=== PATIENT | female | born 1955 | race Caucasian/White ===

== ENCOUNTER 2016-11-02 13:19 | Emergency (ER) | payer SELFPAY ==
[2016-11-02] MEDS ORDERED: TDAP ADULT 0.5 ML INJ (BOOSTRIX) IM ONE (14:38)
--- NOTE | 2016-11-02 14:58 | EDPHY ---
H & P Time Seen by Provider: 11/02/16 13:50 HPI/ROS: HPI Facial laceration. Hit door. 61-year-old female by private vehicle with her friend. This patient reports that she opened the door and accidentally hit herself under the left eye. She sustained a laceration beneath the left eye. She denies any other injury or complaint. She was seen at the [facility] briefly. She was told to come to the emergency department for further management. No loss of consciousness. She has had no confusion. No nausea or vomiting. No headache. She denies any changes in vision. No neck pain. No other complaints. ROS: Constitutional: No fever, no chills. No weakness. Eyes: No discharge. No changes in vision. Musculoskeletal: No back pain. No neck pain. As above Skin: Facial laceration as above Neurological: No headache. No focal weakness or altered sensation. Past medical history: Back surgery Social history: Nonsmoker. Here with her friend. Physical Exam: General Appearance: Alert, no distress. This patient is responding to questions appropriately and in full sentences. This patient appears well- hydrated and well-nourished. Head: Normocephalic atraumatic. Face: Facial bones are stable on palpation. She has a mild amount of ecchymosis just over the left upper maxilla. There is a 2.5 cm jagged laceration which has a small amount of tissue loss over this area. No infraorbital paresthesia. No diplopia on upward gaze. There is no significant bony tenderness, step-off or crepitus on palpation of this area. Eyes: Pupils equal and round and reactive to light, no pallor or injection. No lid erythema or edema. ENT, Mouth: Mucous membranes moist. Dentition is intact. No malocclusion of the jaw. No tongue lacerations or abrasions. Pharynx is clear. The bilateral nasal canals are clear. No septal hematoma. Neurological: Motor sensory function is intact. Cranial nerves are normal. Cerebellar function intact. Skin: Warm and dry, no rashes. No lacerations, abrasions or contusions. Extremities are symmetrical, full range of motion. All joints in the bilateral upper and bilateral lower extremities range without pain or impingement. No tenderness on palpation of the long bones in the bilateral upper and bilateral lower extremities. Psychiatric: No agitation. No depression. Database: EKG: Imaging: Procedures: Procedure: Laceration repair. Verbal consent was obtained from the patient. The 2.5 cm laceration on the left upper cheek was anesthetized in the usual fashion. The wound was irrigated , draped and explored to its base with a gloved finger. There were no deep structures involved. No foreign body was identified. The wound was repaired with 8, 6.0 Prolene sutures placed in interrupted fashion. The wound repair was tolerated well and there were no complications. The procedure was performed by myself. Emergency department course: After suture repair, wound care was discussed with the patient. Follow-up and return to emergency department precautions reviewed. Suture removal reviewed. She feels comfortable going home. All of her questions were answered. She was discharged in good condition. Differential Diagnosis: The differential diagnosis on this patient includes but is not limited to facial contusion, facial laceration. Facial fracture, traumatic brain injury, spinal injury, other significant traumatic injury unlikely. This represents a partial list of diagnoses considered. These considerations are based on history , physical exam, past history, reassessment and diagnostic testing. Smoking Status: Former smoker Constitutional: Initial Vital Signs Temperature (C) 36.8 C 11/02/16 13:20 Heart Rate 88 11/02/16 13:20 Blood Pressure 134/98 H 11/02/16 13:20 O2 Sat (%) 95 11/02/16 13:20 O2 Delivery Mode Room Air Allergies/Adverse Reactions: morphine Allergy (Severe, Verified 02/02/13 18:45) "SCREAMING IMMANUEL" penicillin V potassium [From Pen-Vee K] Allergy (Intermediate, Verified 18:44) Rash Home Medications: Medication Instructions Recorded Aspirin/Acetaminophen/Caffeine 1 each PO .2-3 TIMES A DAY 02/02/13 [Excedrin Migraine Geltab] Herbals/Supplements -Info Only 1 each PO AD 02/02/13 Hydrocodone/Acetaminophen [Vicodin 1 each PO QID 02/02/13 5-300 mg Tablet] Multivitamins [Tab-A-Tiffanie] 1 each PO DAILY 02/02/13 Pharmacist Completed 02/02/13 02/02/13 Medical Decision Making - Data Points Medications Given: Discontinued Medications Diphtheria/Tetanus/Acell Pertussis (Boostrix) 0.5 ml IM .ONCE ONE Stop: 11/02/16 14:39 Last Admin: 11/02/16 14:44 Dose: 0.5 ml Departure - Departure Disposition: Home, Routine, Self-Care Clinical Impression: Facial contusion, Facial laceration Condition: Good Instructions: Facial Laceration (ED) Additional Instructions: Read and follow provided instructions. Sutures are to be removed in 5-7 days. This can be done here at the emergency department or your primary care physician can do this. Ibuprofen dosin mg every 6 hours with meals for the next 3 days only. Take only as needed for pain. Return to the emergency department for worsening pain, signs of infection or other serious concerns. Referrals: Shadia Gutierrez MD [Primary Care Provider] - As per Instructions
[2016-11-02 15:03] VITALS: BP 147/81; PULSE 78; RESP 16; TEMP 97.5; O2SAT 98
== END 2016-11-07 12:17 | disposition home or self-care (01) ==
PROC: 0HQ1XZZ Repair Face Skin, External Approach (ICD-10-PCS; principal; 2016-11-02)
DX: S01.412A Laceration without foreign body of left cheek and temporomandibular area, initial encounter (principal); Z23 Encounter for immunization; Z79.82 Long term (current) use of aspirin; Z87.891 Personal history of nicotine dependence; W22.8XXA Striking against or struck by other objects, initial encounter; Y93.89 Activity, other specified

== ENCOUNTER 2016-11-19 11:06 | Inpatient (IN) | payer BC ==
[2016-11-19] MEDS ORDERED: NS 1,000 ML IV ONE ×2 (11:15→11:16)
[2016-11-19 11:37] LABS: % IMMATURE GRANULYOCYTES 0.5 % (0.0-1.1); ABSOLUTE IMMATURE GRANULOCYTES 0.05 10^3/uL (0.00-0.10); ADD DIFF? NO; ADD MORPH? YES; ADD SCAN? NO; ATYPICAL LYMPHOCYTE FLAG 10 (0-99); FRAGMENT RBC FLAG 0 (0-99); LEFT SHIFT FLG 0 (0-99); LIPEMIA HEMOLYSIS FLAG 90 (0-99); MEAN CELL HEMOGLOBIN 33.3 pg (27.9-34.1); MEAN CELL HEMOGLOBIN CONCENTR. 34.4 g/dL (32.4-36.7); MEAN CELL VOLUME 96.8 fL (81.5-99.8); MEAN PLATELET VOLUME 10.1 fL (8.7-11.7); PLATELET CLUMPS FLAG 10 (0-99); PLATELET COUNT 270 10^3/uL (150-400); RED BLOOD CELL COUNT 1.86 10^6/uL (4.18-5.33); RED CELL DISTRIBUTION WIDTH 13.9 % (11.5-15.2)
[2016-11-19 11:38] LABS: HEMOGLOBIN 6.2 g/dL (12.6-16.3)
--- NOTE | 2016-11-19 11:40 | EDPHY ---
HPI/HX/ROS/PE/MDM Narrative: CHIEF COMPLAINT: Rectal bleeding, weakness HPI: The patient is a 61 y/o female, with a history of peptic ulcers, arriving with her friend complaining of rectal bleeding onset 2 days ago and weakness onset this morning. She had a normal endoscopy and colonoscopy in July 2016 through [facility]. She reports the bleeding began suddenly early Sunday morning and woke her from sleep. It became "profuse" throughout the day and has been nearly continuous since Sunday. She called [facility] and eventually spoke with Dr. Escamilla who thought her symptoms were likely due to internal hemorrhoids. He referred her to urgent care as they were unable to see her in the office, but urgent care referred her directly to the ED. Today, she describes bowel movements of "solid blood" that ranges from burgundy to black in color and sometimes has clots in it. She had one episode of vomiting with normal-colored emesis. She currently feels too weak to stand up. She notes she has been using Tylenol and Excedrin frequently for her chronic back pain. REVIEW OF SYSTEMS: Aside from elements discussed in the HPI, a comprehensive 10-point review of systems was reviewed and is negative. 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 No alcohol use. . Friend at bedside. PHYSICAL EXAM: General:Patient is alert, in no acute distress. ENT: Sclera icterus, eyes are otherwise normal to inspection. ENT inspection normal. Neck: Normal inspection. Full range of motion. Respiratory:No respiratory distress. Breath sounds normal bilaterally. Cardiovascular: Regular rate and rhythm. Strong peripheral pulses. Normal cap refill. Abdomen:The abdomen is nontender to palpation. There are no peritoneal signs. There are normal bowel sounds. Back: Normal to inspection. No tenderness to palpation. Skin: Pale. No rash. Warm and dry. Extremities: Normal appearance. Full range of motion. Neuro: Oriented x3. Normal motor function. Normal sensory function. ED Course: This is a 61 y/o female, with a history of peptic ulcers, who presents with acute onset "burgundy" rectal bleeding and progressive weakness over the last 3 days. She notes a colonoscopy and endoscopy in July 2016 were normal. She is pale on exam, but mentating appropriately despite an initial BP of 67/56 and tachycardia. Her presentation is consistent with a GI bleed and anemia. Plan for IV, labs, and possible transfusion pending lab results. I also plan to consult GI. Patient's Hct is decreased at 19 and she will require a blood transfusion. 1 unit PRBCs ordered. 1147: Consulted with Dr. Varma, GI. He agrees with my plan for transfusion and Protonix drip and will assess her during admission. 1154: Spoke with hospitalist service. Dr. Carpenter accepts admission to the ICU. Critical care time spent by me, Dr. Madrid, exclusively with this patient was 60 minutes, exclusive of PA time and exclusive of procedures. The organ system at risk was GI and cardiovascular and I gave IVF and blood transfusion to prevent worsening of the patients condition. - Data Points Laboratory Results: Laboratory Results 11/19/16 11:21 11/19/16 11:21 11/19/16 11/19/16 11/19/16 11:21 11:21 11:21 WBC RBC Hgb POC Hgb Hct POC Hct MCV MCH MCHC RDW Plt Count MPV Neut % (Auto) Lymph % (Auto) Sutter % (Auto) Eos % (Auto) Baso % (Auto) Nucleat RBC Rel Count Absolute Neuts (auto) Absolute Lymphs (auto) Absolute Monos (auto) Absolute Eos (auto) Absolute Basos (auto) Absolute Nucleated RBC Immature Gran % Immature Gran # Platelet Estimate Polychromasia Smear Review By PT INR APTT POC Sodium Sodium 136 mEq/L mEq/L (134-144) POC Potassium Potassium 3.8 mEq/L mEq/L (3.5-5.2) POC Chloride Chloride 105 mEq/L mEq/L (97-110) Carbon Dioxide 20 mEq/l L mEq/l (22-31) Anion Gap 11 mEq/L mEq/L (8-16) POC BUN BUN 35 mg/dL H mg/dL (7-23) Creatinine 0.7 mg/dL mg/dL (0.6-1.0) POC Creatinine Estimated GFR > 60 Glucose 158 mg/dL H mg/dL (70-100) POC Glucose Calcium 8.8 mg/dL mg/dL (8.5-10.4) Total Bilirubin 0.4 mg/dL mg/dL (0.1-1.4) Conjugated Bilirubin 0.3 mg/dL mg/dL (0.0-0.5) Unconjugated Bilirubin 0.1 mg/dL mg/dL (0.0-1.1) AST 16 IU/L IU/L (14-46) ALT 24 IU/L IU/L (9-52) Alkaline Phosphatase 34 IU/L L IU/L (38-126) Total Protein 5.5 g/dL L g/dL (6.3-8.2) Albumin 3.3 g/dL L g/dL (3.5-5.0) H. pylori IgG Antibody Pending Patient ABO/Rh A NEGATIVE Antibody Screen NEGATIVE Crossmatch IS Only See Detail 11/19/16 11/19/16 11/19/16 11:21 11:21 11:20 WBC 9.18 10^3/uL 10^3/uL (3.80-9.50) RBC 1.86 10^6/uL L 10^6/uL (4.18-5.33) Hgb 6.2 g/dL L g/dL (12.6-16.3) POC Hgb 6.5 gm/dL L gm/dL (12.3-15.9) Hct 18.0 % L % (38.0-47.0) POC Hct 19 % L % (35.5-47.5) MCV 96.8 fL fL (81.5-99.8) MCH 33.3 pg pg (27.9-34.1) MCHC 34.4 g/dL g/dL (32.4-36.7) RDW 13.9 % % (11.5-15.2) Plt Count 270 10^3/uL 10^3/uL (150-400) MPV 10.1 fL fL (8.7-11.7) Neut % (Auto) 75.9 % H % (39.3-74.2) Lymph % (Auto) 18.4 % % (15.0-45.0) Sutter % (Auto) 4.4 % L % (4.5-13.0) Eos % (Auto) 0.5 % L % (0.6-7.6) Baso % (Auto) 0.3 % % (0.3-1.7) Nucleat RBC Rel Count 0.0 % % (0.0-0.2) Absolute Neuts (auto) 6.96 10^3/uL H 10^3/uL (1.70-6.50) Absolute Lymphs (auto) 1.69 10^3/uL 10^3/uL (1.00-3.00) Absolute Monos (auto) 0.40 10^3/uL 10^3/uL (0.30-0.80) Absolute Eos (auto) 0.05 10^3/uL 10^3/uL (0.03-0.40) Absolute Basos (auto) 0.03 10^3/uL 10^3/uL (0.02-0.10) Absolute Nucleated RBC 0.00 10^3/uL 10^3/uL (0-0.01) Immature Gran % 0.5 % % (0.0-1.1) Immature Gran # 0.05 10^3/uL 10^3/uL (0.00-0.10) Platelet Estimate ADEQUATE (ADEQ) Polychromasia 1+ H Smear Review By Pending PT 13.7 SEC SEC (12.0-15.0) INR 1.06 (0.83-1.16) APTT 21.2 SEC L SEC (23.0-38.0) POC Sodium 138 mEq/L mEq/L (134-144) Sodium POC Potassium 3.5 mEq/L mEq/L (3.3-5.0) Potassium POC Chloride 102 mEq/L mEq/L (96-108) Chloride Carbon Dioxide Anion Gap POC BUN 32 mg/dL H mg/dL (7-23) BUN Creatinine POC Creatinine 0.6 mg/dL mg/dL (0.6-1.2) Estimated GFR Glucose POC Glucose 164 mg/dL H mg/dL (70-100) Calcium Total Bilirubin Conjugated Bilirubin Unconjugated Bilirubin AST ALT Alkaline Phosphatase Total Protein Albumin H. pylori IgG Antibody Patient ABO/Rh Antibody Screen Crossmatch IS Only Medications Given: Discontinued Medications Sodium Chloride (Ns) 1,000 mls @ 0 mls/hr IV ONCE ONE PRN Reason: Wide Open Stop: 11/19/16 11:16 Last Admin: 11/19/16 11:32 Dose: 1,000 mls Sodium Chloride (Ns) 1,000 mls @ 0 mls/hr IV ONCE ONE PRN Reason: Wide Open Stop: 11/19/16 11:17 Last Admin: 11/19/16 11:43 Dose: 1,000 mls Point of Care Test Results: 11/19/16 11:20 POC Sodium 138 POC Potassium 3.5 POC Chloride 102 POC BUN 32 H POC Creatinine 0.6 POC Glucose 164 H General Time Seen by Provider: 11/19/16 11:13 Initial Vital Signs: Initial Vital Signs Temperature (C) 36.2 C 11/19/16 11:10 Heart Rate 130 H 11/19/16 11:10 Respiratory Rate 22 H 11/19/16 11:10 Blood Pressure 67/53 L 11/19/16 11:10 O2 Sat (%) 94 11/19/16 11:10 O2 Delivery Mode Room Air Allergies/Adverse Reactions: morphine Allergy (Severe, Verified 11/19/16 11:10) "SCREAMING IMMANUEL" penicillin V potassium [From Pen-Vee K] Allergy (Intermediate, Verified 11:10) Rash Home Medications: Medication Instructions Recorded Multivitamins [Tab-A-Tiffanie] 1 each PO DAILY 02/02/13 Aspirin [Aspirin 325 mg (*)] 325 mg PO DAILY 11/19/16 FLUoxetine [Prozac 20 MG (*)] 40 mg PO DAILY 11/19/16 LORazepam [Ativan (*)] 1 mg PO HS PRN 11/19/16 Departure - Departure Disposition: [facility] Inpatient Acute Clinical Impression: Hemorrhagic shock GI bleed Qualifiers: GI bleed type/associated pathology: unspecified gastrointestinal hemorrhage type Qualified Code(s): K92.2 - Gastrointestinal hemorrhage, unspecified Anemia Qualifiers: Anemia type: other cause Other causes of anemia: other cause, not classified Qualified Code(s): D64.89 - Other specified anemias Condition: Fair Report Scribed for: Tommy Madrid Report Scribed by: Deneen Thomas Date of Report: 11/19/16 Time of Report: 11:40 Physician Review and Approval Statement: Portions of this note were transcribed by an ED scribe. I personally performed the history, physical exam, and medical decision making; and confirm the accuracy of the information in the transcribed note.
[2016-11-19] MEDS ORDERED: PANTOPRAZOLE SODIUM 80 MG in NS 100 ML IV ONE ×2 (11:48→12:30)
[2016-11-19 11:50] LABS: INR 1.06 (0.83-1.16); PROTIME(PATIENT) 13.7 SEC (12.0-15.0)
[2016-11-19 11:51] LABS: APTT 21.2 SEC (23.0-38.0)
[2016-11-19 12:02] LABS: POLYCHROMASIA 1+
[2016-11-19 12:04] LABS: PLATELET ESTIMATE ADEQUATE (ADEQ)
[2016-11-19 12:14] LABS: ALANINE AMINOTRANSFERASE 24 IU/L (9-52); ALBUMIN 3.3 g/dL (3.5-5.0); ALKALINE PHOSPHATASE 34 IU/L (38-126); ANION GAP 11 mEq/L (8-16); ASPARTATE AMINOTRANSFERASE 16 IU/L (14-46); BILIRUBIN,TOTAL 0.4 mg/dL (0.1-1.4); BILIRUBIN-CONJUGATED 0.3 mg/dL (0.0-0.5); BILIRUBIN-UNCONJUGATED 0.1 mg/dL (0.0-1.1); CALCIUM 8.8 mg/dL (8.5-10.4); CARBON DIOXIDE 20 mEq/l (22-31); CHLORIDE 105 mEq/L (97-110); CREATININE 0.7 mg/dL (0.6-1.0); GLOMERULAR FILTRATION RATE > 60; GLUCOSE 158 mg/dL (70-100); POTASSIUM 3.8 mEq/L (3.5-5.2); SODIUM 136 mEq/L (134-144); TOTAL PROTEIN 5.5 g/dL (6.3-8.2)
[2016-11-19] MEDS ORDERED: TEMAZEPAM 15 MG CAP PO PRN (12:37)
[2016-11-19] MEDS ORDERED: ONDANSETRON 4 MG/2 ML VIAL IVP PRN (12:37)
[2016-11-19] MEDS ORDERED: ACETAMINOPHEN 325 MG TAB PO PRN (12:37)
[2016-11-19] MEDS ORDERED: ONDANSETRON DISINTEGRATING 4 MG TAB PO PRN (12:37)
[2016-11-19] MEDS ORDERED: LORazepam 1 MG TAB PO PRN (12:40)
[2016-11-19] MEDS ORDERED: NS 1,000 ML IV SCH (12:45)
--- NOTE | 2016-11-19 13:13 | GHP ---
[f rep st] HISTORY AND PHYSICAL DATE OF ADMISSION: 11/19/2016 CHIEF COMPLAINT: GI bleed. HISTORY OF PRESENT ILLNESS: This is a 61-year-old female with a history of gastric ulcers who prese nts with a GI bleed. 2 days prior to presentation, she had an acute episode of bright red blood per rectum which she describes as large and profuse. This then stopped. 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 The day before presentation she had some ongoing mild bleeding; however, she presen mari to the emergency department today after having an episode of melena. She threw up once though t his was stomach contents and was not bloody. She felt quite weak, dizzy, and had some mild chest pa in. She has been off a PPI for approximately 4 months. She said that she wanted to get off all her medi cations. She has also been taking Excedrin which contains aspirin she says at least a few a day. T his is due to chronic low back pain. She was trying to get off narcotics. She reports a colonoscopy as well as an upper endoscopy in July of 2016. At that point, she had no ulcers and had internal hemorrhoids though. She does have a history of polyps. She has a histo ry of a GI bleed in 2012 which was due to gastric ulcers. PAST MEDICAL/SURGICAL HISTORY: 1. Peptic ulcer disease. 2. History of a volvulus status post colectomy. 3. Chronic low back pain with previous chronic narcotic use. 4. x2. 5. Lumbar surgeries. MEDICATIONS: Please see medication reconciliation. ALLERGIES: Morphine and penicillin. SOCIAL HISTORY: She occasionally drinks alcohol. She does not smoke. She is accompanied by her sandra ferris and the rest of her family. FAMILY HISTORY: No ulcers. REVIEW OF SYSTEMS: 10-point review of systems is conducted and is negative except per HPI. PHYSICAL EXAMINATION: VITAL SIGNS: Initial blood pressure is 67/53, heart rate 130, respiration ra te 22, saturating 94% on room air. GENERAL: The patient is a pleasant female who appears mildly di stressed but not terribly uncomfortable. HEENT: Normocephalic, atraumatic. CARDIOVASCULAR: Borde rline tachycardic. There are no murmurs, rubs, or gallops. PULMONARY: In no respiratory distress. She is clear to auscultation bilaterally. ABDOMEN: Soft, nontender, nondistended. She has haydee l bowel sounds. SKIN: No rash. : No Jones. NEUROLOGIC: Alert and oriented x3. She is moving all extremities. PSYCHIATRIC: Normal mood and affect. LABORATORY DATA: Hemoglobin is 6.2, down from 12 and her previous check INR is 1.0, platelets are 2 70. Bicarb is 20. DATA: 1. I reviewed her chart including her old EGD. 2. I discussed this with Dr. Madrid in the emergency department. IMPRESSION AND PLAN: A 61-year-old female with a severe GI bleed. 1. GI bleed: I suspect that this is upper; however, lower is certainly a possibility. She has bee n on aspirin off PPI. Has a history of ulcers. Also has internal hemorrhoids as well as a colectom y with reanastomosis. GI has been consulted. Expect an upper endoscopy and possibly lower endoscop y based on the findings. Will place her on continuous Protonix for now. 2. Acute blood loss anemia: This is very marked. She was hemodynamically unstable on presentation with hemorrhagic shock. She is currently getting normal saline and will get a transfusion of blood . Will trend her H and H. She may need additional transfusions. 3. Chronic low back pain: She has been off narcotics recently. Will give her pain medications p.r .n. 4. Mild acidosis: This is likely lactate in the setting of hypoperfusion. I expect that this will correct with by correcting her shock. 5. Venous thromboembolism risk: She is moderate; however, pharmacologic is contraindicated. Will give her SCDs. 6. Diet will be n.p.o. for now pending endoscopy. BILLING: I spent 45 minutes of critical care time for hemorrhagic shock and life-threatening GI ble ed. She will be triaged at the ICU. /[id number]/MODL
[2016-11-19] MEDS ORDERED: LORazepam 2 MG/ML INJ ONE ×2 (13:18→16:08)
[2016-11-19] MEDS ORDERED: LORazepam 2 MG/ML INJ IVP ONE (13:20)
[2016-11-19] MEDS ORDERED: methylPREDNISolone SOD SUCC 125 MG/2 ML VIAL IVP ONE (13:23)
[2016-11-19] MEDS ORDERED: methylPREDNISolone SOD SUCC 125 MG/2 ML VIAL ONE (13:31)
[2016-11-19] MEDS: PANTOPRAZOLE SODIUM 80 MG in NS 100 ML IV SCH ×2 (15:18→21:09)
[2016-11-19 16:06] LABS: HEMATOCRIT 22.3 % (38.0-47.0); HEMOGLOBIN 7.8 g/dL (12.6-16.3)
[2016-11-19] MEDS ORDERED: MIDAZOLAM 2 MG/2 ML VIAL ONE (16:07)
[2016-11-19] MEDS ORDERED: fentaNYL 100 MCG/2 ML INJ ONE (16:08)
[2016-11-19] MEDS ORDERED: MIDAZOLAM 2 MG/2 ML VIAL IVP ONE (16:30)
[2016-11-19] MEDS ORDERED: fentaNYL 100 MCG/2 ML INJ IV ONE (16:30)
[2016-11-19] MEDS ORDERED: LORazepam 2 MG/ML INJ IV ONE (16:30)
--- NOTE | 2016-11-19 16:38 | GCON ---
[f rep st] CONSULTATION ASSESSMENT: A 61-year-old female, presenting with acute gastrointestinal bleeding. She is acutely anemic and had hypotensive/ tachycardia in the emergency room. I suspect she has an upper GI bleed based on her presentation. The differential also includes lower GI bleeding or small bowel bleeding. RECOMMENDATIONS: 1. N.p.o. 2. IV PPI drip. 3. Blood transfusion x2. 4. Admission to the ICU. 5. Plan for emergent EGD. CHIEF COMPLAINT: I was asked to see the patient in consultation by Dr. Carpenter for a chief complaint of melena and acute blood loss anemia. HISTORY OF PRESENT ILLNESS: The patient is a 61-year-old female with a history of peptic ulcer disease, who presents with bright red blood per rectum, rectal bleeding, and now melena since Sunday. She also reports weakness and dizziness. She takes Excedrin on a regular basis and recently stopped taking her proton pump inhibitor medication. She vomited once since the bleeding started. She has chronic back pain and has undergone back surgery. She denies any fevers. REVIEW OF SYMPTOMS: CONSTITUTIONAL: Negative. HEENT: Negative. RESPIRATORY : Negative. CARDIOVASCULAR: Negative. GASTROINTESTINAL: See history of present illness for details. RECTAL: Bleeding, melena, and nausea are all positive. GENITOURINARY: Negative. REPRODUCTIVE/ENDOCRINE: Negative. MUSCULOSKELETAL: Negative other than chronic back pain, which is controlled. HEMATOLOGIC/LYMPHATIC: Negative. IMMUNOLOGIC/ALLERGIC/RHEUMATOLOGIC: Negative. SKIN: Negative. NEUROLOGIC: Negative. MENTAL HEALTH: Negative. PAST MEDICAL HISTORY: Significant for: 1. History of a rectal polyp, status post surgical resection. 2. History of cecal volvulus, status post surgery. 3. Chronic back pain. SURGICAL HISTORY: 1. x2. 2. Lumbar back surgery x2. 3. Colectomy for cecal volvulus. 4. Surgical removal of large colon polyp. FAMILY HISTORY: No family history noted related to the chief complaint. SOCIAL HISTORY: She does not smoke. She previously used alcohol on a regular basis fairly heavily. She quit, but then restarted, and has since quit again. ALLERGIES: She has a listed allergy to penicillin and morphine derivatives. OUTPATIENT MEDICATIONS: 1. Excedrin. 2. Tylenol. 3. Temazepam as needed for insomnia. 4. Prozac 40 mg orally daily. INPATIENT MEDICATIONS: 1. Tylenol. 2. Prozac 40 mg orally daily. 3. Lorazepam 1 mg at night as needed for insomnia. 4. Zofran 4 mg IV orally every 4 hours as needed for nausea and vomiting. 5. Pantoprazole IV drip. 6. Temazepam 15 mg orally at night as needed for insomnia. PHYSICAL EXAMINATION: VITAL SIGNS: Blood pressure currently 118/66, heart rate 99, respirations 16, she is saturating 100% on 2 L nasal cannula. Initially upon presentation to the emergency room, her blood pressure was 67/53 with a heart rate of 130. She is afebrile with a temperature of 36.2. GENERAL : She is awake, alert, interactive, in no acute distress. HEENT: Pupils are equal, round, and reactive to light. Oral mucosa is moist. CHEST: Breath sounds are clear to auscultation bilaterally without rales, rhonchi, or wheezing. CARDIOVASCULAR: Regular heart rate and rhythm. No murmurs, rubs, or gallops. Normal S1, S2. ABDOMEN: Soft, nontender, nondistended. MUSCULOSKELETAL: Full range of motion. SKIN: [place], warm, and well perfused. No rashes. NEUROLOGICAL: Grossly nonfocal. Cranial nerves 2-12 are intact. She is coordinating gait. LYMPH NODES: There are no palpable lymph nodes. PSYCHIATRIC: She is oriented x3. No mood disorder. Normal affect. LABORATORY DATA: White blood cell count is 9.18, hemoglobin 6.2, hematocrit of 18, MCV 96.8, platelet count 270. INR is 1.06. Sodium 136, potassium 3.8, chloride 105, carbon dioxide 12, anion gap 11, BUN 35, creatinine 0.7, glucose 158, calcium 8.8, total bilirubin 0.4, AST 16, ALT 24, alkaline phosphatase is 34, total protein 5.5, albumin is 3.3. /[id number]/MODL MTDD
[2016-11-19 17:08] VITALS: TEMP 99
[2016-11-19] MEDS ORDERED: GOLYTELY 4000 ML BTL PO ONE (17:11)
--- NOTE | 2016-11-19 17:15 | POSTOPPROG ---
Post Op Note Date of Operation: 11/19/16 Surgeon: Valeriano Varma Pre-op Diagnosis: Suspect upper GI bleeding Post-op Diagnosis: Normal EGD Indication: Acute blood loss anemia Procedure: EGD Findings: Normal EGD. No source for bleeding found. Inf/Abcess present in the surg proc area at time of surgery?: No EBL: Minimal Complications: none Specimen(s): none
--- NOTE | 2016-11-19 18:34 | GPN ---
[f rep st] PROCEDURE NOTE PROCEDURE: Upper endoscopy. PREPROCEDURE DIAGNOSIS: Suspected acute upper GI bleed. POSTPROCEDURE DIAGNOSIS: Normal upper endoscopy. MEDICATIONS: 1. Diphenhydramine 25 mg IV. 2. Fentanyl 200 mcg IV. 3. Midazolam 9 mg IV moderate sedation. Moderate sedation was administered by the nurse and over seen by myself, Dr. Varma. The patient was monitored with blood pressure, heart rate, oxygen saturations, and telemetry. TOTAL PROCEDURE TIME: 35 minutes. INDICATIONS: The patient is a 61-year-old female who presents with suspected acute upper GI hemorrhage with melena and bright red blood per rectum. She is hypotensive and tachycardic in the emergency room. She has since stabilized and has been given 2 units of blood. She is undergoing emergent upper endoscopy for further evaluation. The risks and benefits of the procedure were discussed with the patient and consent obtained. The risks include, but not limited to, bleeding, perforation, risks of sedation. The patient is ASA class 2. DESCRIPTION OF PROCEDURE: The upper endoscope inserted into the esophagus, into stomach and second portion of the duodenum. The esophagus appears normal. The GE junction is located at 40 cm from incisors. There is no evidence of esophagitis, varices or esophageal varices. She has no gastritis. There is no blood in the entire upper GI tract. The duodenum and second portion are normal. There are no duodenal ulcers noted. IMPRESSION: Normal upper endoscopy without source of bleeding being found. RECOMMENDATIONS: Plan for GoLYTELY prep overnight and a colonoscopy in the morning. Given her high sedation requirements, we will schedule this with propofol/ MAC. Thank you for allowing me to participate in the care of patient. Please do not hesitate to call with questions. /[id number]/MODL MTDD
[2016-11-19 22:29] LABS: HEMATOCRIT 27.6 % (38.0-47.0); HEMOGLOBIN 9.8 g/dL (12.6-16.3)
[2016-11-20] MEDS ORDERED: diphenhydrAMINE 25 MG CAP PO ONE (04:39)
[2016-11-20 05:08] LABS: % IMMATURE GRANULYOCYTES 0.5 % (0.0-1.1); ABSOLUTE IMMATURE GRANULOCYTES 0.04 10^3/uL (0.00-0.10); ADD DIFF? NO; ADD MORPH? NO; ADD SCAN? NO; ATYPICAL LYMPHOCYTE FLAG 0 (0-99); FRAGMENT RBC FLAG 0 (0-99); HEMATOCRIT 25.9 % (38.0-47.0); HEMOGLOBIN 9.1 g/dL (12.6-16.3); LEFT SHIFT FLG 10 (0-99); LIPEMIA HEMOLYSIS FLAG 90 (0-99); MEAN CELL HEMOGLOBIN 31.8 pg (27.9-34.1); MEAN CELL HEMOGLOBIN CONCENTR. 35.1 g/dL (32.4-36.7); MEAN CELL VOLUME 90.6 fL (81.5-99.8); MEAN PLATELET VOLUME 10.6 fL (8.7-11.7); PLATELET CLUMPS FLAG 20 (0-99); PLATELET COUNT 152 10^3/uL (150-400); RED BLOOD CELL COUNT 2.86 10^6/uL (4.18-5.33); RED CELL DISTRIBUTION WIDTH 16.2 % (11.5-15.2)
[2016-11-20 05:39] LABS: ANION GAP 5 mEq/L (8-16); CALCIUM 7.3 mg/dL (8.5-10.4); CARBON DIOXIDE 18 mEq/l (22-31); CHLORIDE 114 mEq/L (97-110); CREATININE 0.6 mg/dL (0.6-1.0); GLOMERULAR FILTRATION RATE > 60; GLUCOSE 96 mg/dL (70-100); POTASSIUM 3.6 mEq/L (3.5-5.2); SODIUM 137 mEq/L (134-144)
[2016-11-20] MEDS ORDERED: FLUoxetine 20 MG CAP PO SCH (09:00)
[2016-11-20 09:49] LABS: HEMATOCRIT 26.4 % (38.0-47.0); HEMOGLOBIN 9.2 g/dL (12.6-16.3)
[2016-11-20 09:56] VITALS: BP 116/68; PULSE 70; RESP 14; O2SAT 93
[2016-11-20] MEDS: PANTOPRAZOLE SODIUM 80 MG in NS 100 ML IV SCH (10:11)
--- NOTE | 2016-11-20 13:20 | GDS ---
[f rep st] DISCHARGE SUMMARY DATE OF AMA DEPARTURE: 11/20/2016. DIAGNOSES: 1. Hemorrhagic shock. 2. Acute gastrointestinal bleed of unknown source. 3. Acute blood loss anemia, status post transfusion of 3 units of packed red blood cells. 4. Chronic low back pain. HOSPITAL COURSE: This is a 61-year-old female who has a history of gastric ulcers, who presented wi th an acute GI bleed and hemorrhagic shock. Blood pressure, on presentation, was 67/53, with a hear t rate of 130. Hemoglobin on presentation was 6.2, down from 12.2, last May when it was checked here. She underwent upper endoscopy, which was negative for ulcers or any source of bleeding. Her duodenal was visualized. Plan was to give her a prep and perform colonoscopy the following day. S he did not tolerate the prep. She was requesting a different type of prep, which I offered to attem pt to find. She became quite agitated the morning that she left AMA, was quite frustrated with how the prep had been attempted the evening before. As above, I told her I would attempt to find a diff erent prep that would be more suitable to her, however, she declined. She wished to leave, however, I told her that the risks of leaving would include life-threatening hemorrhage and . She elec mari to leave AMA regardless. Her was present for this conversation. DISPOSITION: She left AMA in potentially critical condition. I discussed this with Dr. Varma, wh o agreed with me. BILLING: I spent more than 30 minutes on the day of discharge coordinating care. /[id number]/MODL
== END 2016-11-20 11:18 | disposition left against medical advice (07) | DRG 377 ==
LOC: F2N 14:14
PROVIDERS: ADMIT Student in an Organized Health Care Education/Training Program; ATTEND Student in an Organized Health Care Education/Training Program
PROC: 0DJ08ZZ Inspection of Upper Intestinal Tract, Via Natural or Artificial Opening Endoscopic (ICD-10-PCS; 2016-11-19)
PROC: 30233N1 Transfusion of Nonautologous Red Blood Cells into Peripheral Vein, Percutaneous Approach (ICD-10-PCS; principal; 2016-11-19 16:00)
DX: K92.2 Gastrointestinal hemorrhage, unspecified (principal); R57.8 Other shock; D62 Acute posthemorrhagic anemia; M54.5 Low back pain; K64.8 Other hemorrhoids; Z79.899 Other long term (current) drug therapy; Z87.11 Personal history of peptic ulcer disease; Z86.010 Personal history of colon polyps; Z88.0 Allergy status to penicillin; Z90.49 Acquired absence of other specified parts of digestive tract
CPT/HCPCS: 82947-QW; J1200; J2060; J2250; J3010; P9016

== ENCOUNTER → 2017-01-23 | Outpatient (CLI) | payer BC | LOC: BMCIMAGING 07:58 | PROVIDERS: ATTEND Internal Medicine | DX: N63 Unspecified lump in breast (principal) | CPT/HCPCS: G0202 ==

== ENCOUNTER → 2017-02-04 | Outpatient (CLI) | payer BC ==
[~2017-02-04] MED LIST: GADOBUTROL 10 ML VIAL IVP ONE
== END ==
LOC: FIMAGING 13:49
PROVIDERS: ATTEND Internal Medicine
DX: D17.22 Benign lipomatous neoplasm of skin and subcutaneous tissue of left arm (principal)
CPT/HCPCS: A9585

== ENCOUNTER → 2017-02-19 | Outpatient (CLI) | payer BC | LOC: FIMAGING 09:55 | PROVIDERS: ATTEND Physician Assistant | DX: M51.36 Other intervertebral disc degeneration, lumbar region (principal); M47.896 Other spondylosis, lumbar region; M41.86 Other forms of scoliosis, lumbar region | CPT/HCPCS: A9585 ==

== ENCOUNTER → 2017-04-29 | Outpatient (CLI) | payer BC | LOC: FIMAGING 07:58 | PROVIDERS: ATTEND Neurological Surgery | DX: M51.24 Other intervertebral disc displacement, thoracic region (principal); M50.321 Other cervical disc degeneration at C4-C5 level; M48.04 Spinal stenosis, thoracic region; M48.02 Spinal stenosis, cervical region; M46.92 Unspecified inflammatory spondylopathy, cervical region ==

== ENCOUNTER → 2017-04-29 | Outpatient (CLI) | payer BC | LOC: FIMAGING 08:04 | PROVIDERS: ATTEND Neurological Surgery | DX: M41.86 Other forms of scoliosis, lumbar region (principal); M51.36 Other intervertebral disc degeneration, lumbar region; M51.37 Other intervertebral disc degeneration, lumbosacral region ==

== ENCOUNTER 2017-06-20 07:30 | Inpatient (IN) | payer BC ==
[2017-08-01] MEDS ORDERED: GABAPENTIN 300 MG CAP PO ONE (06:16)
[2017-08-01] MEDS ORDERED: ACETAMINOPHEN 500 MG TAB PO ONE (06:16)
[2017-08-01] MEDS ORDERED: ceFAZolin 2 GM/SWFI 2 GM/20 ML SYR IVP ONE (06:16)
--- NOTE | 2017-08-01 06:18 | PDANEPAE ---
ANE History of Present Illness 62 yo female with LBP and L leg paresthesia. ANE Past Medical History - Cardiovascular History Hx Hypertension: No Hx Arrhythmias: No Hx Chest Pain: No Hx Coronary Artery / Peripheral Vascular Disease: No Hx CHF / Valvular Disease: No Hx Palpitations: No - Pulmonary History Hx COPD: No Hx Asthma/Reactive Airway Disease: No Hx Recent Upper Respiratory Infection: No Hx Oxygen in Use at Home: No Hx Sleep Apnea: No Sleep Apnea Screening Result - Last Documented: Negative - Neurologic History Hx Cerebrovascular Accident: No Hx Seizures: No Hx Dementia: No - Endocrine History Hx Diabetes: No - Renal History Hx Renal Disorders: No - Liver History Hx Hepatic Disorders: No - Neurological & Psychiatric Hx Hx Neurological and Psychiatric Disorders: Yes Neurological / Psychiatric History Comment: Degenerative scoliosis, radiculopathy. L leg numbness. on Prozac for 20 yrs-depression - Cancer History Hx Cancer: No - Congenital Disorder History Hx Congenital Disorders: No - GI History Hx Gastrointestinal Disorders: Yes Gastrointestinal History Comment: GI bleed -bled 4 units of blood. Source unknown per Halley Escamilla and Avani. - Other Health History Other Health History: none - Chronic Pain History Chronic Pain: Yes - Surgical History Prior Surgeries: lumbar kim. excision of cysts in lumbar spine. colon resection. cyst removal arm ANE Review of Systems Review of Systems: - Exercise capacity METS (RN): 4 METS - Systems Constitutional: Reports: no symptoms Respiratory: Reports: cough (resolving, started 4 weeks ago) Gastrointestinal: Reports: no symptoms Muscolosketal: Reports: back pain, other (L leg pain, occ R leg pain) ANE Patient History - Allergies Allergies/Adverse Reactions: morphine Allergy (Severe, Verified 08/01/17 06:49) "SCREAMING IMMANUEL" penicillin V potassium [From Pen-Vee K] Allergy (Intermediate, Verified 06:49) Rash hydromorphone [From Dilaudid] Allergy (Verified 08/01/17 06:49) Itching - Home Medications Home Medications: FLUoxetine [Prozac 20 MG (*)] 60 mg PO DAILY 11/19/16 [Last Taken 07/31/17 21:00 ] LORazepam [Ativan (*)] 1 - 2 mg PO HS PRN 11/19/16 [Last Taken 07/31/17 21:00] Naproxen Sodium [Aleve 220 MG (*)] 220 mg PO BID PRN 05/16/17 [Last Taken 09:00] - NPO status NPO Status: no food or drink >8 hours - Anes Hx Anes Hx: no prior problems - Smoking Hx Smoking Status: Former smoker (quit x 32 yrs) Marijuana use: No - Alcohol Use Alcohol Use: Sober - Family Anes Hx Family Anes Hx: neg - N/A ANE Labs/Vital Signs - Vital Signs Vital Signs: reviewed preoperatively; see RN documention for details Height: 171.45 cm Weight: 49.442 kg ANE Physical Exam - Airway Neck exam: FROM Mallampati Score: Class 2 Mouth exam: normal dental/mouth exam - Pulmonary Pulmonary: clear to auscultation - Cardiovascular Cardiovascular: regular rate and rhythym - ASA Status ASA Status: II ANE Anesthesia Plan Anesthesia Plan: general endotracheal anesthesia Lines/Monitors: additional IV
--- NOTE | 2017-08-01 06:29 | PDHPUP ---
History & Physical Update H&P update statement: This history and physical update is based on an assessment of the patient which was completed after admission or registration (within 24 hours), but prior to the surgery/procedure. H&P update: H&P reviewed & patient examined, no change in patient's condition since H&P completed
[2017-08-01] MEDS ORDERED: DEXMEDETOMIDINE IN 0.9 % NACL 50 ML IV SCH (06:30)
[2017-08-01] MEDS ORDERED: DEXMEDETOMIDINE HCL 400 MCG in NS 100 ML IV SCH ×2 (06:30→13:30)
[2017-08-01] MEDS ORDERED: LR 1,000 ML IV ONE (06:43)
[2017-08-01] MEDS ORDERED: CHLORHEXIDINE GLUC HIBICLENS 118 ML BTL TP ONE (06:50)
[2017-08-01] MEDS ORDERED: BUPIVACAINE 0.25% 30 ML SDV ONE (06:50)
[2017-08-01] MEDS ORDERED: BACITRACIN 50,000 UNITS/10 ML SYR IRR ONE ×2 (06:51→11:00)
[2017-08-01] MEDS ORDERED: fentaNYL 250 MCG/5 ML INJ ONE (07:12)
[2017-08-01] MEDS ORDERED: LIDOCAINE 2% 5 ML SDV ONE (07:12)
[2017-08-01] MEDS ORDERED: ROCURONIUM 50 MG/5 ML VIAL ONE (07:12)
[2017-08-01] MEDS ORDERED: DEXAMETHASONE 4 MG/ML VIAL ONE (07:12)
[2017-08-01] MEDS ORDERED: PROPOFOL/EMULSION 500 MG/50 ML BOTTLE IV ONE (07:12)
[2017-08-01] MEDS ORDERED: THROMBIN (BOVINE) 5,000 UNIT VIAL TP ONE ×2 (07:23→11:01)
[2017-08-01] MEDS ORDERED: DEXMEDETOMIDINE/NS 4MCG/ML 50 ML BTL IV ONE ×2 (07:29→09:08)
[2017-08-01] MEDS ORDERED: diphenhydrAMINE 25 MG CAP PO PRN (07:41)
[2017-08-01] MEDS ORDERED: morphINE PCA 30 MG/30 ML PCA IV PRN (07:41)
[2017-08-01] MEDS ORDERED: POLYETHYLENE GLYCOL 3350 17 GM PKT PO PRN (07:41)
[2017-08-01] MEDS ORDERED: BISACODYL 10 MG SUPP PR PRN (07:41)
[2017-08-01] MEDS ORDERED: NALOXONE HCL 0.4 MG/ML INJ IVP PRN ×2 (07:41→12:36)
[2017-08-01] MEDS ORDERED: ONDANSETRON DISINTEGRATING 4 MG TAB PO PRN (07:41)
[2017-08-01] MEDS ORDERED: ONDANSETRON 4 MG/2 ML VIAL IVP PRN (07:41)
[2017-08-01] MEDS ORDERED: LACTULOSE 20 GM/30 ML UDCUP PO PRN (07:41)
[2017-08-01] MEDS ORDERED: MAGNESIUM HYDROXIDE 30 ML UDCUP PO PRN (07:41)
[2017-08-01] MEDS ORDERED: NS W/ 20 KCl/L 1,000 ML IV SCH (07:45)
[2017-08-01] MEDS ORDERED: REMIFENTANIL HCL 1 MG VIAL ONE ×2 (07:52→09:08)
[2017-08-01] MEDS ORDERED: ONDANSETRON 4 MG/2 ML VIAL ONE (11:25)
[2017-08-01] MEDS ORDERED: PHENYLEPHRINE HCL 100 MCG/ML SYR ONE (11:34)
[2017-08-01] MEDS ORDERED: fentaNYL 100 MCG/2 ML INJ ONE ×2 (12:12→14:09)
[2017-08-01] MEDS ORDERED: DIAZEPAM 10 MG/2 ML SYR IVP PRN (12:36)
[2017-08-01] MEDS ORDERED: LR 500 ML IV PRN (12:36)
[2017-08-01] MEDS ORDERED: OXYCODONE/APAP 5/325 TAB PO PRN (12:36)
[2017-08-01] MEDS ORDERED: PROMETHAZINE HCL 25 MG/ML INJ IVP PRN (12:36)
[2017-08-01] MEDS ORDERED: fentaNYL 100 MCG/2 ML INJ IVP PRN (12:36)
[2017-08-01] MEDS ORDERED: ALBUTEROL 3 ML DEYVIAL IH PRN (12:36)
[2017-08-01] MEDS ORDERED: ACETAMINOPHEN 500 MG TAB PO PRN (12:36)
--- NOTE | 2017-08-01 13:26 | SOAPPROG ---
SOAP Progress Note Assessment/Plan: Post Op Visit: S: Awake and alert. NAD. Pt with expected lower back pain O: AFVSS/PERRLA/EOMI no droop CN 2-12 grossly intact +lt touch 5/5 BUE/BLE = CDI NYLA in place A/P: 62 yo female that is s/p TLIF L3-S1 -orders in -no bending or twisting -seen by Dr Esqueda as well -admit to SDU on Precedex 08/01/17 13:20 Objective: Vital Signs Temp Pulse Resp BP Pulse Ox 37.5 C 59 L 13 73/49 L 100 08/01/17 13:14 08/01/17 06:23 08/01/17 13:15 08/01/17 13:15 08/01/17 13:15 ICD10 Worksheet Patient Problems: Problems Problem Status Onset Lumbar back pain Acute Lumbar radicular pain Acute Anemia Acute GI bleed Acute Hemorrhagic shock Acute - ICD10 Problem Qualifiers (1) Lumbar back pain (2) Lumbar radicular pain
--- NOTE | 2017-08-01 13:53 | POSTANESTH ---
Post Anesthetic Evaluation Cardiovascular Status: Tx Hyper/Hypo-tension (Giving IVF bolus for borderline low BP.) Respiratory Status: Normal, Stable Level of Consciousness/Mental Status: Can Participate in Eval, Mildly Sleepy, Arousable Pain Control: Adequate, Prn Tx Ordered Nausea/Vomiting Control: Adequate, Prn Tx Ordered Complications Possibly Related to Anesthesia: None Noted
[2017-08-01] MEDS ORDERED: DIAZEPAM 10 MG/2 ML SYR ONE (14:24)
--- NOTE | 2017-08-01 14:31 | GOP ---
[f rep st] OPERATIVE REPORT DATE OF OPERATION: 08/01/2017 SURGEON: Shilpi Esqueda MD NEUROSURGEON: Shilpi Esqueda MD CORE JAVA ENGINEER: Stanislav Cali PA-C. PREOPERATIVE DIAGNOSIS: 1. Degenerative scoliosis L3-4, 4-5, and 5-1. 2. Bilateral lumbosacral radiculopathy, left greater than right. 3. Prior lumbar surgery L4-5, L5-S1. 4. Degenerative disk disease. POSTOPERATIVE DIAGNOSIS: 1. Degenerative scoliosis L3-4, 4-5, and 5-1. 2. Bilateral lumbosacral radiculopathy, left greater than right. 3. Prior lumbar surgery L4-5, L5-S1. 4. Degenerative disk disease. PROCEDURE PERFORMED: Posterior-lateral and intervertebral arthrodesis L3-4, L4-5, L5-S1 (23893, and 13238 x 2), posterior segmental instrumentation L3, L4, L5, S1, placement of biomechanical interverte bral device L3-4, L4-5, L5-S1 (39188 x3), same incision bone graft harvest, spinal stereotaxy, micros cope. FINDINGS: ESTIMATED BLOOD LOSS: 400 cc. INDICATIONS: Ms. Reynolds is a 62-year-old with a terrible left and some right-sided lumbosacral rad iculopathy. An MRI demonstrated severe a degenerative scoliotic curve with a leftward tilt of L4 on L5 and L5 on S1 and collapse of the disk spaces at L3-4 4-5, and 5-1. There was a rightward tilt of L3 on L4. There was severe right foraminal stenosis at 3-4, severe left foraminal stenosis L4-5 and L5-S1, and I suggested a 3-level TLIF. She also had terrible spondylosis and degenerative changes at L2-3, and some surgeons would have included this, but I felt that there was currently no symptoms em anating from L2-3. The risk of continued symptoms, pseudoarthrosis, adjacent segment disease, screw and hardware malposition, loosening of hardware, and the possible need for future spine surgery and r evision spine surgery was discussed. She knew there was a chance that she may continue to be symptom atic after surgery. There is a risk of nerve injury and spinal fluid leak. She knew surgery may alcides l to alleviate her pain, and she did want to proceed. DESCRIPTION OF PROCEDURE: The patient was taken to the operating room and placed in supine position. General anesthesia was begun. She was flipped prone onto the Tato table. Care was taken to pad all points of contact. Her back was sterilely prepped and draped in the usual fashion. A localizin g x-ray was taken. We made a midline incision from the spinous process of L2 to the spinous process of S2. The subcutaneous tissue was dissected using Bovie cautery down to the fascia, and a subperios teal dissection was made down the lamina of L3, L4, L5 and the sacrum. Self-retaining retractors toma vladimir. Localizing x-ray was taken. We denuded the bilateral L3-4, 4-5, and L5-1 facet joints. We att ached the Stealth reference frame. We performed an O-arm spin. Using frameless Stealth stereotaxy, placed pedicle screws bilaterally at L3, L4, L5, and S1. The S1 screws were bicortical. They all st imulated at acceptable levels. We did 3-dimensional reconstructive images to confirm the location of the screws, and they were all in excellent position. We then took a 90 mm jenny for the left and a 100 mm jenny on the right. We cut 100 mm jenny down to 95, p laced the jenny down on the right, distracted it slightly on the right side at L5-S1, then went to the left side and placed the jenny between L5 and S1. These two lips were touching; they were actually phy sically touching and it was very difficult to get the screws in because of their proximity, but we pu t the 90 mm jenny on the left, distracted a little bit between L5 and S1 and distracted a little bit be tween L4-5, then came back to L5-S1, distracted a little more, and then went back to L4-5, distracted some more, and we slowly got some reduction of the degenerative tilt. We could not really push anym ore. The left S1 screw was under too much strain, and we did not want to reduce it perfectly. AP an d lateral images were taken, and there had been reduction of her scoliotic curve. I was happy with t his. At L3-4, we distracted on the right but not on the left, and got reduction of that tilt on the right at L3-4. We checked x-rays, and we were happy with the position on the spine. We then release d the distraction on the right at L5-S1, and this allowed some additional straightening at that segme nt. We then removed all soft tissue and bone at L3, L4, L5 and S1 and harvested the L4, L5, and S1 s pinous processes for autologous grafting purposes. We removed all soft tissue off the bone completel y. We drilled the left L4-5, L5-S1, and a right L3-4 hemilaminectomy and removed the facet, both IAP and SAP of the joints on the right at 3-4 on the left at 4-5 and 5-1. We harvested all this bone fo r autologous grafting purposes. We then opened the neural foramen on the left-hand side. Here, ther e was a prior laminotomy defect at L5-S1. The exiting L5 nerve root was identified, and we decompres sed the entire neural foramen on the left at L5-S1. We then incised the L5-S1 disk, removed the disk and the cartilaginous endplates. On the left at L4-5, we did likewise removing the complete facet j oint complex. We identified the exiting L4 nerve root and then worked our way to the laminotomy defe ct centrally where there was scar tissue. We then opened the L4-5 disk, removed the disk and the car tilaginous endplates. We roughened the subchondral bone to create arthrodesis at that level just as we had done at L5-S1. We then went to the right at L3-4 where there was really dramatic prolapse of the L3-4 disk into the spinal canal. We removed the right IAP-SAP complex of L3-4, incised the L3-4 disk, and removed the disk and the cartilaginous endplates. We roughened the subchondral bone to cre ate arthrodesis. The exiting L3 nerve root was identified and thoroughly decompressed. We decompres sed the lateral recess, as well. We then chose [place] PEEK intervertebral devices at L3-4, L4-5, a nd then chose expandable cage at L5-S1. We then placed bone autograft into the disk space at L3-4, 4 -5, and 5-1. We chose the an cage at L5-S1. We placed a bone morphogenic protein sponge into the disk space at L3-4 4-5, and 5-1. We used a grand total of 6 mg of BMP for the entire surger y. We placed 4 mg into the disk spaces, and only 2 mg was placed posterolaterally. We took 7 x 25 m m [place] PEEK cages and inserted them at L3-4, L4-5, S1. We then took an expandable 7 x 23 mm ____ cage for L5-S1, inserted it from the left side, and under fluoroscopic guidance, it was expand ed. I was happy with the position of all the devices. We then decorticated all the remaining bone p osterolaterally bilaterally to create arthrodesis and then packed BMP and bone autograft posterolater ally bilaterally from L3 to S1. We placed a subfascial drain. We then closed the incision in multip le layers using Vicryl sutures. A running PDS was placed in the skin itself. We had revised the sca r tissue from the prior surgery and we had excised full thickness of the prior scar in the midline ab ove the L4-5 5-1 interspace. Steri-Strips were applied to the skin. A sterile dressing was applied. The patient was reversed from anesthesia, extubated, and transferred to the recovery room in stable condition. There were no complications. COMPLICATIONS: None. /[id number]/MODL
[2017-08-01] MEDS: oxyCODONE IR 5 MG TAB PO PRN (14:51)
[2017-08-01] MEDS ORDERED: oxyCODONE IR 5 MG TAB ONE (14:51)
[2017-08-01] MEDS: FAMOTIDINE 20 MG TAB PO SCH ×2 (15:41→20:46)
[2017-08-01] MEDS: SENNOSIDES/DOCUSATE SODIUM TAB PO SCH ×2 (15:43→20:45)
[2017-08-01] MEDS: GABAPENTIN 300 MG CAP PO SCH ×2 (15:50→20:45)
[2017-08-01] MEDS: ACETAMINOPHEN 500 MG TAB PO SCH ×2 (15:50→22:34)
[2017-08-01] MEDS ORDERED: DEXMEDETOMIDINE IN 0.9 % NACL 100 ML IV SCH (16:00)
[2017-08-01] MEDS: ceFAZolin 2 GM/DEXTROSE 100 ML IV SCH ×2 (16:15→22:36)
[2017-08-01] MEDS: FLUoxetine 20 MG CAP PO SCH (17:11)
[2017-08-01] MEDS ORDERED: NS 500 ML IV ONE (18:30)
[2017-08-01] MEDS: LORazepam 1 MG TAB PO PRN (20:47)
[2017-08-02 04:10] LABS: % IMMATURE GRANULYOCYTES 0.6 % (0.0-1.1); ABSOLUTE IMMATURE GRANULOCYTES 0.04 10^3/uL (0.00-0.10); ADD DIFF? NO; ADD MORPH? NO; ADD SCAN? NO; ATYPICAL LYMPHOCYTE FLAG 0 (0-99); FRAGMENT RBC FLAG 0 (0-99); HEMATOCRIT 22.1 % (38.0-47.0); HEMOGLOBIN 7.3 g/dL (12.6-16.3); LEFT SHIFT FLG 0 (0-99); LIPEMIA HEMOLYSIS FLAG 80 (0-99); MEAN CELL HEMOGLOBIN 32.4 pg (27.9-34.1); MEAN CELL VOLUME 98.2 fL (81.5-99.8); MEAN PLATELET VOLUME 10.5 fL (8.7-11.7); PLATELET CLUMPS FLAG 20 (0-99); PLATELET COUNT 178 10^3/uL (150-400); RED BLOOD CELL COUNT 2.25 10^6/uL (4.18-5.33)
[2017-08-02 04:22] LABS: ANION GAP 7 mEq/L (8-16); CALCIUM 7.7 mg/dL (8.5-10.4); CARBON DIOXIDE 23 mEq/l (22-31); CHLORIDE 111 mEq/L (97-110); CREATININE 0.6 mg/dL (0.6-1.0); GLOMERULAR FILTRATION RATE > 60; GLUCOSE 97 mg/dL (70-100); POTASSIUM 4.3 mEq/L (3.5-5.2); SODIUM 141 mEq/L (134-144)
[2017-08-02] MEDS: GABAPENTIN 300 MG CAP PO SCH ×3 (06:21→20:48)
[2017-08-02] MEDS: ACETAMINOPHEN 500 MG TAB PO SCH ×3 (06:21→20:47)
--- NOTE | 2017-08-02 07:10 | NEUSURGPN ---
Date of Surgery: 08/01/17 Post Op Day: 1 Assessment/Plan: Assessment: 62 yo female that is s/p TLIF L3-S1 POD #1 Plan: -s/p L spine fusion: pt doing well this am with improvement in LLE pain, LBP is painful but tolerable -PT/OT ordered -brace fit and working well-continue when out of bed -post op xrays pending today -H/H at 03/10-will check in am another H/H and monitor symptoms -Pt doing well with current pain medications-precedex->switch to PO -pt seen by Dr Esqueda as well -orders in -NYLA in place-may remove tomorrow -no bending or twisting -call with any questions or concerns -pt understands and agrees Subjective: Awake and alert. NAD. Pt with expected lower back pain. No siegel/neck/chest/abd or gu complaints. Objective: AFVSS/PERRLA/EOMI no droop CN 2-12 grossly intact +lt touch 5/5 BUE/BLE = CDI NYLA in place Neuro Check Frequency: per routine Urinary Catheter in Place: No Catheter Insertion Date: 08/01/17 - Physician Discussed Patient with : Dheeraj Patient Seen by : Dheeraj Neurosurgery Physical Exam - Vitals, I&O, Labs I and O 08/01/17 08/02/17 08/03/17 05:59 05:59 05:59 Intake Total 5748 Output Total 2785 Balance 2963 Weight 49.442 kg Intake: Oral (ml) 475 IV Intake (ml) 4000 IV Infused (ml) 1273 Dexmedetomidine in 0.9 % 40 NaCl 100 ml @ Per Protocol IV CONT CHUCK Rx#: [id number] NS W/ 20 KCl/L 1,000 ml @ 1233 100 mls/hr IV CONT CHUCK Rx#:[id number] Output: Urine (ml) 1950 Catheter 1950 Estimated Blood Loss (ml) 450 NYLA Drain Output (ml) 385 #1 Back Tato Mehta 385 Vital Signs Temp Pulse Resp BP Pulse Ox 36.7 C 76 16 90/42 L 100 08/01/17 20:00 08/02/17 06:00 08/02/17 06:00 08/02/17 06:00 08/02/17 06:00 Laboratory Results 08/02/17 04:00 08/02/17 04:00 ICD10 Worksheet Patient Problems: Problems Problem Status Onset Lumbar back pain Acute Lumbar radicular pain Acute Anemia Acute GI bleed Acute Hemorrhagic shock Acute - ICD10 Problem Qualifiers (1) Lumbar back pain (2) Lumbar radicular pain
[2017-08-02] MEDS: FLUoxetine 20 MG CAP PO SCH (08:01)
[2017-08-02] MEDS: METHOCARBAMOL 750 MG TAB PO PRN ×4 (08:01→20:48)
[2017-08-02] MEDS: oxyCODONE IR 5 MG TAB PO PRN ×3 (08:01→16:48)
[2017-08-02] MEDS: FAMOTIDINE 20 MG TAB PO SCH ×2 (08:03→20:47)
[2017-08-02] MEDS: SENNOSIDES/DOCUSATE SODIUM TAB PO SCH ×2 (08:03→20:47)
[2017-08-02] MEDS ORDERED: ALBUMIN 5% 250 ML BOTTLE IV ONE (09:00)
[2017-08-02] MEDS ORDERED: ALBUMIN 5% 250 ML IV ONE ×2 (09:30→10:10)
[2017-08-02] MEDS ORDERED: NS 500 ML IV ONE (09:30)
--- NOTE | 2017-08-02 16:16 | ASMTCASEMG ---
Living Arrangements What is your living Answers: With Spouse arrangement? Who do you live with? Type Of Residence What kind of residence do Answers: House you live in? Discharge Plan Comments Coordination Status Comments Notes: Patient is a 62yo female who has a hx of 2 back surgeries with increasing numbness in the left calf and weakness on the left side which spread from her hip to her toes. She was admitted for surgery to alleviate this. PT/OT have been ordered. Patient just had surgery today. Will await therapy recommendations to determine d/c needs. CM will follow. Date Signed: 08/02/2017 04:15 PM Electronically Signed By:Georgina Morel LCSW
[2017-08-02] MEDS: LORazepam 1 MG TAB PO PRN (20:47)
[2017-08-03] MEDS: oxyCODONE IR 5 MG TAB PO PRN ×5 (01:24→21:13)
[2017-08-03] MEDS: GABAPENTIN 300 MG CAP PO SCH ×3 (05:25→20:42)
[2017-08-03] MEDS: ACETAMINOPHEN 500 MG TAB PO SCH ×3 (05:26→22:14)
[2017-08-03 05:37] LABS: HEMATOCRIT 22.9 % (38.0-47.0); HEMOGLOBIN 7.4 g/dL (12.6-16.3)
[2017-08-03] MEDS: HYDROCODONE/APAP 5/325 TAB PO PRN ×2 (07:06→13:29)
--- NOTE | 2017-08-03 08:19 | NEUSURGPN ---
Assessment/Plan: Assessment: 62 yo female that is s/p TLIF L3-S1 POD #2 Plan: -s/p L spine fusion: pt doing well this am with improvement in LLE pain, LBP is painful but tolerable -PT/OT ordered -brace fit and working well-continue when out of bed -post op xrays pending today -H/H at 03/10- monitor symptoms, had apparent transfusion rxn to transfusion dc'd -Pt doing well with current pain medications-off precedex, on PO -NYLA in place- likely remove today -Transfer to floor today. -call with any questions or concerns -D/w Dr Esqueda Subjective: Pt resting in bed, states back pain is tolerable. Objective: AAOx3 NAD VSS MAEx4 Motor 5/5 BLE Incision dressed cdi +LT Urinary Catheter in Place: No Catheter Insertion Date: 08/01/17 - Physician Discussed Patient with : Dheeraj Neurosurgery Physical Exam - Vitals, I&O, Labs I and O 08/02/17 08/03/17 08/04/17 05:59 05:59 05:59 Intake Total 5748 2706 Output Total 2785 2410 Balance 2963 296 Weight 49.442 kg Intake: Oral (ml) 475 850 IV Intake (ml) 4000 500 IV Infused (ml) 1273 1196 Dexmedetomidine in 0.9 % 40 NaCl 100 ml @ Per Protocol IV CONT CHUCK Rx#: [id number] NS W/ 20 KCl/L 1,000 ml @ 1233 1196 100 mls/hr IV CONT CHUCK Rx#:[id number] Whole Blood (ml) 160 Output: Urine (ml) 1950 2100 Bedside Commode 2100 Catheter 1950 Estimated Blood Loss (ml) 450 NYLA Drain Output (ml) 385 310 #1 Back Tato Mehta 385 310 Vital Signs Temp Pulse Resp BP Pulse Ox 36.8 C 68 12 108/58 L 96 08/02/17 19:28 08/03/17 04:00 08/03/17 04:00 08/03/17 04:00 08/03/17 04:00 Laboratory Results 08/03/17 05:30 08/02/17 04:00 ICD10 Worksheet Patient Problems: Problems Problem Status Onset Lumbar back pain Acute Lumbar radicular pain Acute Anemia Acute GI bleed Acute Hemorrhagic shock Acute
[2017-08-03] MEDS: FLUoxetine 20 MG CAP PO SCH (09:02)
[2017-08-03] MEDS: SENNOSIDES/DOCUSATE SODIUM TAB PO SCH ×2 (09:02→20:44)
[2017-08-03] MEDS: FAMOTIDINE 20 MG TAB PO SCH ×2 (09:02→20:45)
[2017-08-03] MEDS: METHOCARBAMOL 750 MG TAB PO PRN (16:05)
[2017-08-03] MEDS: LORazepam 1 MG TAB PO PRN (20:44)
[2017-08-04] MEDS: HYDROCODONE/APAP 5/325 TAB PO PRN (00:25)
[2017-08-04] MEDS: METHOCARBAMOL 750 MG TAB PO PRN ×2 (00:25→11:24)
[2017-08-04 00:27] VITALS: RESP 16
[2017-08-04] MEDS: ACETAMINOPHEN 500 MG TAB PO SCH ×2 (06:01→13:25)
[2017-08-04] MEDS: GABAPENTIN 300 MG CAP PO SCH ×2 (06:02→13:25)
[2017-08-04 07:30] VITALS: BP 105/56; PULSE 71; TEMP 98.2
[2017-08-04] MEDS: oxyCODONE IR 5 MG TAB PO PRN ×2 (08:25→13:24)
[2017-08-04] MEDS: FAMOTIDINE 20 MG TAB PO SCH (08:26)
[2017-08-04] MEDS: SENNOSIDES/DOCUSATE SODIUM TAB PO SCH (08:26)
[2017-08-04] MEDS: FLUoxetine 20 MG CAP PO SCH (08:26)
[2017-08-04] MEDS ORDERED: ENOXAPARIN 40 MG/0.4 ML SYR SC SCH (09:00)
--- NOTE | 2017-08-04 09:41 | NEUSURGPN ---
Date of Surgery: 08/01/17 Post Op Day: 3 Assessment/Plan: Assessment: 62 yo female that is s/p TLIF L3-S1 POD #2 Plan: -s/p L spine fusion: pt doing well this am leg symptoms improved since surgery, expected incisional pain -PT/OT -wear brace when out of bed -post op xrays stable hardware placement -H/H was stable yesterday. Patient is asymptomatic this am, stable bp, denies sob -Ok to discharge home with home health today -Dressing removed, ok to shower, leave steri strips in place -Discussed patient with Dr Esqueda -Please call neurosurgery with any questions/concerns Subjective: Patient pleased with surgical results, expected incisional pain Objective: AxO x3 PERRLA EOMI 5/5 BUE, BLE Sensation intact to light touch BLE Dressing removed, steri strips in place-CDI Neuro Check Frequency: per routine Urinary Catheter in Place: No Catheter Insertion Date: 08/01/17 - Physician Discussed Patient with : Dheeraj Neurosurgery Physical Exam - Vitals, I&O, Labs I and O 08/03/17 08/04/17 08/05/17 05:59 05:59 05:59 Intake Total 2706 200 Output Total 2410 80 Balance 296 120 Intake: Oral (ml) 850 200 IV Intake (ml) 500 IV Infused (ml) 1196 NS W/ 20 KCl/L 1,000 ml @ 1196 100 mls/hr IV CONT CHUCK Rx#:[id number] Whole Blood (ml) 160 Output: Urine (ml) 2100 Bedside Commode 2100 NYLA Drain Output (ml) 310 80 #1 Back Tato Mehta 310 80 Other: Number of Voids Toilet 2 Vital Signs Temp Pulse Resp BP Pulse Ox 36.8 C 71 16 105/56 L 97 08/04/17 07:29 08/04/17 07:29 08/04/17 07:29 08/04/17 07:29 08/04/17 07:29 Laboratory Results 08/03/17 05:30 08/02/17 04:00 ICD10 Worksheet Patient Problems: Problems Problem Status Onset Lumbar back pain Acute Lumbar radicular pain Acute Anemia Acute GI bleed Acute Hemorrhagic shock Acute
--- NOTE | 2017-08-04 09:56 | PDIAF ---
- Diagnosis Diagnosis: s/p L3-S1 TLIF Code Status: Full Code - Medication Management Discharge Medications: Medications to Continue on Transfer FLUoxetine [Prozac 20 MG (*)] 60 mg PO DAILY 11/19/16 [Last Taken 07/31/17 21:00 ] LORazepam [Ativan (*)] 1 - 2 mg PO HS PRN 11/19/16 [Last Taken 07/31/17 21:00] Acetaminophen [Tylenol ES 500 mg (*)] 1,000 mg PO Q8HRS tab 08/04/17 [Last Taken Unknown] Methocarbamol [Robaxin 750 mg (*)] 750 mg PO QID PRN #60 tab 08/04/17 [Last Taken Unknown] Sennosides/Docusate Sodium [Senokot-S] 1 - 2 tab PO BID tab 08/04/17 [Last Taken Unknown] oxyCODONE IR [Oxycodone Ir (*)] 5 - 10 mg PO Q4HRS PRN #60 tab 08/04/17 [Last Taken Unknown] Discharge Medications: Refer to the Discharge Home Medication list for PRN reason. PICC Care - Routine: N/A - Orders Services needed: Home Care, Registered Nurse, Certified Lead Nuclear Medicine Technologist, Physical Therapy Home Care Face to Face: I certify that this patient was under my care and that I had the required lyno-cx-flix encounter meeting the encounter requirements on the discharge day. My findings support the fact that the patient is homebound as defined in Home Care Face to Face Continued: CMS Chapter 7 Medicare Benefits Manual 30.1.1 , The condition of the patient is such that there exists a normal inability to leave home and consequently, leaving home would require a considerable and taxing effort. Isolation Type: None Diet Recommendation: no restrictions on diet Diet Texture: Regular Texture Diet Neil Stockings Discontinue Date: when ambulating 100-200 yds 3-4 times per day Wound Care Instructions: Leave steri strips in place, we will remove at post op appointment. Do not submerge incision Activity/Weight Bearing Restrictions: No bending, twisting or lifting greater than 10 pounds Equipment: Wear brace when out of bed, ok to take off to shower - Follow Up Care Current Providers and Referrals: Shadia Gutierrez MD [Primary Care Provider] - Lizbeth Esqueda MD [Medical Doctor] - follow up in 2 weeks
[2017-08-04 10:09] VITALS: O2SAT 90
--- NOTE | 2017-08-04 12:26 | ASDISCHSUM ---
Discharge Information Plan Status:Home with Home Health Medically Cleared to Leave:08/03/2017 Discharge Date:08/03/2017 CM D/C Disposition:Home Health Service ADT D/C Disposition:Home Health Service Projected Discharge Date:08/04/2017 11:00 AM Transportation at D/C:Family Discharge Delay Reason: Follow-Up Date:08/04/2017 11:00 AM Discharge Slot: Final Diagnosis: Placement Information Referral Type:*Home Health Care Services Referral ID:[id number] Provider Name:[facility] Address 1:[address] [address] Address 2: City:[place] Selection Factors: State:[place] Patient Contact Information Contact Name:ALEJANDRA Relationship: Address:[address] City:[place] Alternate Phone: State/Zip Code:[place] [address] Email: Financial Information Financial Class:HMO and PPO Plans Primary Plan Desc: OUT OF STATE PPO Primary Plan Number:[id number] Secondary Plan Desc: Secondary Plan Number: Assessment Information [facility] Initial CM Assessment Living Arrangements What is your living Answers: With Spouse arrangement? Who do you live with? Type Of Residence What kind of residence do Answers: House you live in? Discharge Plan Comments Coordination Status Comments Notes: Patient is a 62yo female who has a hx of 2 back surgeries with increasing numbness in the left calf and weakness on the left side which spread from her hip to her toes. She was admitted for surgery to alleviate this. PT/OT have been ordered. Patient just had surgery today. Will await therapy recommendations to determine d/c needs. CM will follow. Date Signed: 08/02/2017 04:15 PM Electronically Signed By:Georgina Morel LCSW Case Management Discharge Plan Note Case Management Discharge Discharge Order Complete? 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 D/C orders/meds sent. Date Signed: 08/04/2017 12:26 PM Electronically Signed By:SIVAN Newell Intervention Information
== END 2017-08-04 13:40 | disposition home health service (06) | DRG 455 ==
LOC: F3N 08-01 05:57 → F2N 08-01 15:20 → F3N 08-03 16:34
PROVIDERS: ADMIT Neurological Surgery; ATTEND Neurological Surgery
PROC: 0SG3071 Fusion of Lumbosacral Joint with Autologous Tissue Substitute, Posterior Approach, Posterior Column, Open Approach (ICD-10-PCS; principal; 2017-08-01 07:30)
PROC: 8E0WXBZ Computer Assisted Procedure of Trunk Region (ICD-10-PCS; principal; 2017-08-01 07:30)
PROC: 0SG1071 Fusion of 2 or more Lumbar Vertebral Joints with Autologous Tissue Substitute, Posterior Approach, Posterior Column, Open Approach (ICD-10-PCS; principal; 2017-08-01 07:30)
PROC: 0SG30AJ Fusion of Lumbosacral Joint with Interbody Fusion Device, Posterior Approach, Anterior Column, Open Approach (ICD-10-PCS; principal; 2017-08-01 07:30)
PROC: 01NB0ZZ Release Lumbar Nerve, Open Approach (ICD-10-PCS; principal; 2017-08-01 07:30)
PROC: 0SG10AJ Fusion of 2 or more Lumbar Vertebral Joints with Interbody Fusion Device, Posterior Approach, Anterior Column, Open Approach (ICD-10-PCS; principal; 2017-08-01 07:30)
PROC: 30233N1 Transfusion of Nonautologous Red Blood Cells into Peripheral Vein, Percutaneous Approach (ICD-10-PCS; 2017-08-02)
DX: M41.56 Other secondary scoliosis, lumbar region (principal); M54.16 Radiculopathy, lumbar region; M51.36 Other intervertebral disc degeneration, lumbar region; F32.9 Major depressive disorder, single episode, unspecified
CPT/HCPCS: 97116-GP; 97161-GP; 97166-GO; 97530-GO; 97535-GO; C1713; G8987-GO-CK; G8988-GO-CI; J0171; J0690; J1100; J1650; J2370; J2405; J2704; J3010; P9016; P9041

== ENCOUNTER → 2017-07-04 | Outpatient (CLI) | payer BC | LOC: BMCIMAGING 09:20 | PROVIDERS: ATTEND Internal Medicine | DX: Z13.820 Encounter for screening for osteoporosis (principal); M85.80 Other specified disorders of bone density and structure, unspecified site ==

== ENCOUNTER 2017-12-26 13:59 | Emergency (ER) | payer BC ==
--- NOTE | 2017-12-26 14:34 | EDPHY ---
H & P Stated Complaint: brain bleed, cervical fracture Time Seen by Provider: 12/26/17 14:24 HPI/ROS: CHIEF COMPLAINT: Referred to ED for abnormal head and neck CT scans HISTORY OF PRESENT ILLNESS: The patient presents to the emergency department after she was diagnosed with a intracranial hemorrhage in cervical fracture via outpatient CT scans. The patient reportedly had a mechanical fall at her home on Sunday. She struck the right side of her head. She is uncertain whether she experienced a loss of consciousness. The patient does have a history of chronic back pain. She complains of mild pain in her cervical spine. She denies any acute numbness or weakness. The patient denies fever, cough or congestion. The patient is not anticoagulated. The patient did sustain a small scalp laceration which she cleaned at the time of her fall. REVIEW OF SYSTEMS: A comprehensive 10 point review of systems is otherwise negative aside from elements mentioned in the history of present illness. Source: Patient Exam Limitations: No limitations - Personal History Tetanus Vaccine Date: 2007 - Medical/Surgical History Hx Asthma: No Hx Chronic Respiratory Disease: No Hx Diabetes: No Hx Cardiac Disease: No Hx Renal Disease: No Hx Cirrhosis: No Hx Alcoholism: No Hx HIV/AIDS: No Hx Splenectomy or Spleen Trauma: No Other PMH: psh- back surgeries; Peptic Ulcers; [place]-rectal adenoma removed X5; C -sections - Social History Smoking Status: Former smoker - Physical Exam Exam: General Appearance: Alert, no distress Head: Right frontal scalp hematoma, old laceration well-approximated Eyes: Pupils equal, round, reactive ENT, Mouth: No hemotympanum, no oral trauma Neck: Midline tenderness to palpation, no palpable deformity or step-off Respiratory: No chest wall tender, no subcutaneous air, lungs clear bilaterally Cardiovascular: Regular rate and rhythm Abdomen: Abdomen is soft and nontender, pelvis stable Skin: No lacerations, No abrasion Back: No midline T/L/S pain Extremities: Nontender, full range of motion Neurological: A&Ox3, normal motor function, normal sensory exam Constitutional: Initial Vital Signs Temperature (C) 36.7 C 12/26/17 14:01 Heart Rate 84 12/26/17 14:01 Respiratory Rate 16 12/26/17 14:01 Blood Pressure 124/81 H 12/26/17 14:01 O2 Sat (%) 98 12/26/17 14:01 O2 Delivery Mode Room Air Allergies/Adverse Reactions: morphine Allergy (Intermediate, Verified 12/26/17 14:03) "Tingling" penicillin V potassium [From Pen-Vee K] Allergy (Intermediate, Verified 14:03) Rash hydromorphone [From Dilaudid] Allergy (Verified 12/26/17 14:03) Itching methocarbamol [From Robaxin] Allergy (Verified 12/26/17 14:03) Home Medications: Medication Instructions Recorded FLUoxetine [Prozac 20 MG (*)] 60 mg PO DAILY 11/19/16 LORazepam [Ativan (*)] 1 - 2 mg PO HS PRN 11/19/16 Acetaminophen [Tylenol ES 500 mg 1,000 mg PO Q8HRS tab 08/04/17 (*)] Methocarbamol [Robaxin 750 mg (*)] 750 mg PO QID PRN #60 tab 08/04/17 Sennosides/Docusate Sodium 1 - 2 tab PO BID tab 08/04/17 [Senokot-S] oxyCODONE IR [Oxycodone Ir (*)] 5 - 10 mg PO Q4HRS PRN #60 tab 08/04/17 Medical Decision Making - Diagnostics Imaging Results: Imaging Impressions Lumbar Spine CT 12/26/17 15:29 Impression: 1. No acute osseous abnormality CT lumbar spine. 2. Moderate levoscoliosis once again noted with associated disk space narrowing with prominent along the inner aspect of the curvature on the right side especially at L1-L2 and L2-L3. 3. No evidence of loosening of the hardware or hardware fracture. 4. Stable fusion from L3 through S1 along with disk replacement material in place. If symptoms worsen, additional imaging may be necessary. These findings discussed by telephone with Dr. Omar Howard at 16:48 hour, 2017. Cervical Spine CT 12/26/17 18:00 Impression: There is a right frontal extra-axial blood collection, probably subdural in location, measuring 6 mm in diameter, with no associated subfalcine or transtentorial herniation. There is an associated subdermal and subgaleal scalp hematoma the site of the patient's laceration, with no skull fracture observed. UNENHANCED CT SCAN OF THE CERVICAL SPINE Technique: A multidetector unenhanced helical CT scan was obtained from the clivus caudally through the upper thoracic spine, with images reformatted at 1.25 and 0.625 mm increments, and are reviewed in soft tissue, bone, and lung windows. Parasagittal and paracoronal reconstructed images are reviewed on the workstation. The DFOV is 16.0 cm. A dose reduction protocol was used. Findings: There is straightening to slight reversal of the normal cervical lordosis. There is 1.5 mm of C3 anterolisthesis above C4, 2.0 mm of C4 anterolisthesis above C5, and 1.5 mm of C5 posterolisthesis above C6. There is moderate degenerative disk space narrowing at C5-C6, severe degenerative disk space narrowing at C6-C7, and severe degenerative disk space narrowing at T1-2 and T2-T3 with dorsal disk osteophyte complexes. There are ventral traction osteophytes from C5 through C7, and at the T1-T2 level. There is a fracture through the superior articular facet of C6 (identified on axial series 8, images 224-232 and parasagittal series 605, images 24-27). There is no perching or dislocation of the left C5-C6 facet joint. There is no laminar or other posterior element fracture, and the vertebral body heights are maintained, with no acute vertebral body fracture. There is no ventral or dorsal epidural hematoma observed. There is no prevertebral hematoma. The visualized prevertebral soft tissues and lung apices are within normal limits. At the C1-C2 level, there is some mild narrowing of the predental space (with a small vacuum phenomenon), and mild osseous hypertrophy with subchondral sclerosis. The atlantoaxial lateral mass alignment is maintained, and the base and the tip of the dens are normal. The AP canal diameter is normal. At C2-C3 level, there is no focal disk herniation, or canal or neural foraminal stenosis. At the C3-C4 level, there is asymmetric right-sided facet hypertrophy with uncovertebral degenerative spondylosis. There is [id number] right neural foraminal stenosis. Mild facet hypertrophy on the left is observed, with no significant neural foraminal stenosis. There is a small right dorsal disk osteophyte complex with mild impingement on the right lateral recess. At C4-C5 level, there is bilateral facet hypertrophy, severe on the right and [id number] on the left. Uncovertebral degenerative spondylosis results in moderate severe right neural foraminal stenosis. The left neural foramen is relatively patent. There is some broad-based circumference disk bulging with mild central canal stenosis. At the C5-C6 level, there is moderate degenerative disk space narrowing. There is some broad-based circumferential disk bulging slightly eccentric on the right side, and a small right neural foraminal disk herniation is not excluded. There is moderate right neural foraminal stenosis. There is mild narrowing of the left neural foramen. There is moderate bilateral facet hypertrophy. There is the aforementioned superior left C6 facet fracture. At the C6-C7 level, there is severe degenerative disk space narrowing. There is severe bilateral facet hypertrophy. There is uncovertebral vertebral degenerative spondylosis resulting in moderate left neural foraminal stenosis and mild right neural foraminal narrowing. There is broad-based circumference of disk bulging, resulting in moderate central canal stenosis. At the C7-T1 level, there is facet degenerative change with subchondral geodes. There is no significant central canal or neural foraminal stenosis. Impression: 1. There is a nondisplaced fracture through the left C6 superior articular facet , with no associated facet perching or malalignment. There may be a small contralateral right neural foraminal disk herniation at the C5-C6 level. 2. Secondary indicators of underlying cervical muscle spasm. 3. Multilevel degenerative changes, as above-detailed. If there is further clinical concern regarding the patient's symptoms, correlative MR imaging could be considered, if otherwise not contraindicated. Findings were discussed with Edna Fuentes MD at 13:14, on 12/26/2017. Head CT 12/26/17 18:00 Impression: There is a right frontal extra-axial blood collection, probably subdural in location, measuring 6 mm in diameter, with no associated subfalcine or transtentorial herniation. There is an associated subdermal and subgaleal scalp hematoma the site of the patient's laceration, with no skull fracture observed. UNENHANCED CT SCAN OF THE CERVICAL SPINE Technique: A multidetector unenhanced helical CT scan was obtained from the clivus caudally through the upper thoracic spine, with images reformatted at 1.25 and 0.625 mm increments, and are reviewed in soft tissue, bone, and lung windows. Parasagittal and paracoronal reconstructed images are reviewed on the workstation. The DFOV is 16.0 cm. A dose reduction protocol was used. Findings: There is straightening to slight reversal of the normal cervical lordosis. There is 1.5 mm of C3 anterolisthesis above C4, 2.0 mm of C4 anterolisthesis above C5, and 1.5 mm of C5 posterolisthesis above C6. There is moderate degenerative disk space narrowing at C5-C6, severe degenerative disk space narrowing at C6-C7, and severe degenerative disk space narrowing at T1-2 and T2-T3 with dorsal disk osteophyte complexes. There are ventral traction osteophytes from C5 through C7, and at the T1-T2 level. There is a fracture through the superior articular facet of C6 (identified on axial series 8, images 224-232 and parasagittal series 605, images 24-27). There is no perching or dislocation of the left C5-C6 facet joint. There is no laminar or other posterior element fracture, and the vertebral body heights are maintained, with no acute vertebral body fracture. There is no ventral or dorsal epidural hematoma observed. There is no prevertebral hematoma. The visualized prevertebral soft tissues and lung apices are within normal limits. At the C1-C2 level, there is some mild narrowing of the predental space (with a small vacuum phenomenon), and mild osseous hypertrophy with subchondral sclerosis. The atlantoaxial lateral mass alignment is maintained, and the base and the tip of the dens are normal. The AP canal diameter is normal. At C2-C3 level, there is no focal disk herniation, or canal or neural foraminal stenosis. At the C3-C4 level, there is asymmetric right-sided facet hypertrophy with uncovertebral degenerative spondylosis. There is [id number] right neural foraminal stenosis. Mild facet hypertrophy on the left is observed, with no significant neural foraminal stenosis. There is a small right dorsal disk osteophyte complex with mild impingement on the right lateral recess. At C4-C5 level, there is bilateral facet hypertrophy, severe on the right and [id number] on the left. Uncovertebral degenerative spondylosis results in moderate severe right neural foraminal stenosis. The left neural foramen is relatively patent. There is some broad-based circumference disk bulging with mild central canal stenosis. At the C5-C6 level, there is moderate degenerative disk space narrowing. There is some broad-based circumferential disk bulging slightly eccentric on the right side, and a small right neural foraminal disk herniation is not excluded. There is moderate right neural foraminal stenosis. There is mild narrowing of the left neural foramen. There is moderate bilateral facet hypertrophy. There is the aforementioned superior left C6 facet fracture. At the C6-C7 level, there is severe degenerative disk space narrowing. There is severe bilateral facet hypertrophy. There is uncovertebral vertebral degenerative spondylosis resulting in moderate left neural foraminal stenosis and mild right neural foraminal narrowing. There is broad-based circumference of disk bulging, resulting in moderate central canal stenosis. At the C7-T1 level, there is facet degenerative change with subchondral geodes. There is no significant central canal or neural foraminal stenosis. Impression: 1. There is a nondisplaced fracture through the left C6 superior articular facet , with no associated facet perching or malalignment. There may be a small contralateral right neural foraminal disk herniation at the C5-C6 level. 2. Secondary indicators of underlying cervical muscle spasm. 3. Multilevel degenerative changes, as above-detailed. If there is further clinical concern regarding the patient's symptoms, correlative MR imaging could be considered, if otherwise not contraindicated. Findings were discussed with Edna Fuentes MD at 13:14, on 12/26/2017. ED Course/Re-evaluation: The patient arrives with a GCS of 15 and is neurologically intact. I reviewed the results of her CT scans. I consulted with the neurosurgery service at 2:35 p.m.. The patient was placed in a [place] collar after my evaluation. Consultation was made with Neurosurgery. She was evaluated personally by Dr. Esqueda. He requested a CT scan lumbar spine to evaluate for fracture in the setting of her known prior surgery. CT of lumbar spine demonstrates no evidence of an acute fracture. The patient was offered admission to the hospital under the care of Dr. Esqueda. I re-evaluated the patient at 4:51 p.m. The patient tells me she does not want to stay in the hospital. She is a competent decision maker. She is neurologically intact. She will follow up with Dr. Esqueda as an outpatient. She is discharged home with customary aftercare instructions and return precautions. Differential Diagnosis: Differential diagnosis considered includes intracranial hemorrhage, skull fracture, cervical spine fracture, spinal cord injury, lumbar fracture Departure - Departure Disposition: [facility] Inpatient Acute Clinical Impression: Subdural hematoma, Cervical spine fracture Condition: Good Instructions: [place] Collar (ED) Additional Instructions: 1. Wear cervical spine collar until neurosurgery okays its removal. 2. Return to the ED for any acutely worsening pain or other concerns. Referrals: Lizbeth Esqueda MD [Medical Doctor] - As per Instructions
--- NOTE | 2017-12-26 16:08 | GCON ---
[f rep st] CONSULTATION EMERGENCY ROOM CONSULTATION DATE OF CONSULTATION: 12/26/2017 CHIEF COMPLAINT: Subdural hematoma. HISTORY OF PRESENT ILLNESS: The patient is a 62-year-old female who presented to the emergency department today after suffering a fall down her wooden stairs on Sunday afternoon, December 24. The patient states she was carrying some items down her stairs and awoke approximately 2 hours later with some blood near her head. She describes a positive loss of consciousness. The patient's daughter encouraged her to seek medical treatment and she was found to have a small right frontal subdural hematoma. The patient reports that she has a mild frontal headache and a little bit of dizziness. She denies any neck pain or upper extremity symptoms. She is otherwise neurologically intact. REVIEW OF SYSTEMS: A 10-point review of systems was performed and negative aside from what was mentioned in the HPI. CURRENT MEDICATIONS: Vicodin, Prozac. PAST MEDICAL HISTORY: Peptic ulcers, colorectal cancer. SURGICAL HISTORY: L3 to S1 fusion in July [address] Esqueda, colorectal adenoma removal, and C-sections. FAMILY HISTORY: Noncontributory to current situation. SOCIAL HISTORY: The patient is a former smoker, quitting 32 years ago. She does not drink alcohol. She does not use illicit drugs. She does not smoke marijuana or use nicotine products. ALLERGIES: Morphine, Robaxin, penicillin. DIAGNOSTICS: CT of the head performed without contrast demonstrates a right- sided scalp hematoma with right frontal extra-axial blood collection probably in the subdural location measuring 6 mm in diameter. There is no associated subfalcine or transtentorial herniation. There is an associated subdermal and subgaleal scalp hematoma on the side of the patient's laceration, but no skull fracture is observed. CT of cervical spine demonstrates a nondisplaced fracture through the left C6 superior articular facet. There is no associated malalignment. There may be a small contralateral right neural foraminal disk herniation at the C5-C6 level. PHYSICAL EXAM: VITAL SIGNS: 124/81, heart rate is 84, respiratory rate is 16, oxygen saturation is 98% on room air, temperature is 36.7 degrees Celsius. HEENT: Head is normocephalic. She has a right scalp laceration measuring approximately 3/4 inch in length. Pupils are equal, round, and reactive to light. EOMs intact. Full visual cobos by confrontation. Ears are patent. Nose is patent. NECK: Soft and supple without tenderness to palpation. RESPIRATORY/CARDIAC: Deferred. ABDOMEN/RECTAL/GENITOURINARY: Deferred. NEUROLOGIC: The patient is awake, alert, and oriented to name, place, location , date, time, and situation. Her memory is intact to immediate past and current events. Speech, no aphasia or dysphonia. Cranial nerves 2-12 are grossly intact. Motor, the patient has 5/5 strength in all muscle groups in bilateral upper and lower extremities to include deltoids, biceps, triceps, brachioradialis, wrist flexors and extensors, credentialing manager intrinsic fingers, iliopsoas , quadriceps, hamstring, plantar flexion, dorsiflexion, EHL testing. Sensation is grossly intact throughout all dermatomal distributions in bilateral lower extremities. The patient's reflexes at biceps, triceps, brachioradialis, knee jerk, and ankle jerk are 2+ out of 4. Toes are downgoing bilaterally. Babinski is negative. ASSESSMENT AND PLAN: The patient is a 62-year-old female who suffered a fall down the stairs on December 24. The patient had a positive loss of consciousness, which she believes was approximately 2 hours. The patient has a right scalp laceration that appears to be beyond timing of repair. The patient was brought to the emergency department for evaluation by her daughter, underwent a CT of the brain that showed a small right frontal subdural hematoma measuring 6 mm without mass effect. The patient also has a left C6 facet fracture. She does not have any neck tenderness or upper extremity symptoms. We recommend that she wear a [place] collar for 2-4 weeks, follow up with x- rays as an outpatient with repeat CT of the head. With evidence of her subdural hematoma, we do recommend that she is admitted to the stepdown unit for observation. The patient is currently seeing Dr. Tabares in our office for surgical opinion and we will obtain a lumbar CT for further evaluation of her lumbar spine. The patient was seen and examined by myself and Dr. Esqueda in the emergency department at 2:45 p.m. on December 26, 2017. Please call Neurosurgery with any questions or concerns. /[id number]/MODL CT lumbar spine was done to look at the hardware of her fusion following the fall. There was evidence of fusion at L34 45. It was less clear at L5S1 and there was the suggestion of loosening of hardware at S1. MTDD
[2017-12-26 17:30] VITALS: BP 141/76
== END 2017-12-26 17:29 | disposition still patient (30) ==
LOC: EDSTATUS 18:00
DX: S06.5X0A Traumatic subdural hemorrhage without loss of consciousness, initial encounter (principal); S12.9XXA Fracture of neck, unspecified, initial encounter; Z87.891 Personal history of nicotine dependence; W01.198A Fall on same level from slipping, tripping and stumbling with subsequent striking against other object, initial encounter; Y92.009 Unspecified place in unspecified non-institutional (private) residence as the place of occurrence of the external cause

== ENCOUNTER 2018-01-25 12:01 | Emergency (ER) | payer BC ==
[2018-01-25 12:08] VITALS: BP 129/66
--- NOTE | 2018-01-25 12:30 | EDPHY ---
H & P Stated Complaint: forehead lac Time Seen by Provider: 01/25/18 12:13 HPI/ROS: CHIEF COMPLAINT: Forehead laceration abrasion from opening car door HISTORY OF PRESENT ILLNESS: 62-year-old female with up-to-date tetanus, no anticoagulant use, open the car door suddenly impacting her left frontal region sustaining abrasion laceration. Occurred shortly prior to arrival. No loss of consciousness. No alcohol or drug use. No nausea or vomiting. No visual disturbance. No midline C-spine pain. Did not fall. PHYSICAL EXAM 1) GENERAL: Well-developed, well-nourished, alert and oriented. Appears to be in no acute distress. Answering questions appropriately. 2) HEAD: Normocephalic, left frontal region 1 cm laceration with no hematoma 3) HEENT: Pupils equal, round, reactive to light bilaterally. Negative Horners. Nasopharynx, oropharynx, clear. No deformity or angulation of nose. No septal hematoma. No rhinorrhea. No oral trauma. Ears bilaterally with normal tympanic membranes. No hemotympanum. No fluid or blood in the external auditory canal. No raccoon eyes. No Hoyt sign. Teeth are normally aligned with no gross malocclusion, TMJ bilaterally nontender, facial bones nontender including the zygomatic arch, maxilla mandible. 4) NECK: No cervical collar is on. Posterior cervical spine is nontender, no stepoff, no effusion. Full range of motion which does not elicit any midline cervical spine pain, no posterior midline tenderness, no step-off. - Personal History Current Tetanus/Diphtheria Vaccine: Yes Current Tetanus Diphtheria and Acellular Pertussis (TDAP): Yes Tetanus Vaccine Date: 2007 - Medical/Surgical History Hx Asthma: No Hx Chronic Respiratory Disease: No Hx Diabetes: No Hx Cardiac Disease: No Hx Renal Disease: No Hx Cirrhosis: No Hx Alcoholism: No Hx HIV/AIDS: No Hx Splenectomy or Spleen Trauma: No Other PMH: psh- back surgeries; Peptic Ulcers; [place]-rectal adenoma removed X5; C -sections, spinal fusion - Social History Smoking Status: Former smoker Constitutional: Initial Vital Signs Temperature (C) 36.5 C 01/25/18 12:06 Heart Rate 76 01/25/18 12:06 Respiratory Rate 16 01/25/18 12:06 Blood Pressure 129/66 H 01/25/18 12:06 O2 Sat (%) 98 01/25/18 12:06 O2 Delivery Mode Room Air Allergies/Adverse Reactions: morphine Allergy (Intermediate, Verified 01/25/18 12:05) "Tingling" penicillin V potassium [From Pen-Vee K] Allergy (Intermediate, Verified 12:05) Rash hydromorphone [From Dilaudid] Allergy (Verified 01/25/18 12:05) Itching methocarbamol [From Robaxin] Allergy (Verified 01/25/18 12:05) Home Medications: Medication Instructions Recorded Zoloft 25mg (*) 01/25/18 Medical Decision Making Procedures: Procedure: Laceration repair with tissue adhesive Verbal consent was obtained from the patient. The 1 cm laceration on the left frontal region. The wound was scrubbed and explored to its base with a gloved finger. No foreign body seen, no foreign bodies palpated. There were no deep structures involved. The wound was repaired with tissue adhesive. The procedure was performed by myself. Patient has been informed that scarring will occur, although every effort has been made to minimize this. ED Course/Re-evaluation: Doubt skull fracture, doubt intracranial hemorrhage. I do not think that CT imaging is indicated. Usual and customary head injury precautions and instructions provided. She feels comfortable being discharged. I believe her to have decision-making capacity. I saw this patient independently based on established practice protocols. Care of patient under supervision of secondary supervising physician Dr Tommy Madrid. Departure - Departure Disposition: Home, Routine, Self-Care Clinical Impression: Forehead abrasion Qualifiers: Encounter type: initial encounter Qualified Code(s): S00.81XA - Abrasion of other part of head, initial encounter Forehead laceration Qualifiers: Encounter type: initial encounter Qualified Code(s): S01.81XA - Laceration without foreign body of other part of head, initial encounter Head injury due to trauma Qualifiers: Encounter type: initial encounter Qualified Code(s): S09.90XA - Unspecified injury of head, initial encounter Condition: Good Instructions: Laceration (ED), Abrasion (ED), Head Injury (ED) Additional Instructions: ALTHOUGH THERE IS NO EVIDENCE OF SERIOUS HEAD INJURY AT THIS TIME, DELAYED SIGNS CAN APPEAR 24 TO 48 HOURS AFTER INJURY. PLEASE RETURN TO THE EMERGENCY DEPARTMENT (ED) IMMEDIATELY IF YOU HAVE INCREASED HEADACHE, PERSISTENT HEADACHE , VOMITING, WEAKNESS, CONFUSION OR VISUAL PROBLEMS. WE RECOMMEND THAT YOU DO NOT RESUME CONTACT SPORTS OR ACTIVITIES THAT TAKE COORDINATION OR BALANCE SUCH SKIING OR RIDING A BICYCLE UNTIL CLEARED TO DO SO BY YOUR DOCTOR OR BY A NEUROLOGIST. Referrals: Shadia Gutierrez MD [Primary Care Provider] - As per Instructions
[2018-01-25] MEDS ORDERED: SKIN ADHESIVE (DERMABOND) 1 EACH TP ONE (12:41)
== END 2018-01-25 13:31 | disposition home or self-care (01) ==
PROC: 0HQ1XZZ Repair Face Skin, External Approach (ICD-10-PCS; principal; 2018-01-25)
DX: S01.81XA Laceration without foreign body of other part of head, initial encounter (principal); Z87.891 Personal history of nicotine dependence; W22.8XXA Striking against or struck by other objects, initial encounter; Y99.8 Other external cause status; Y93.89 Activity, other specified

== ENCOUNTER → 2018-02-04 | Outpatient (CLI) | payer BC | LOC: BMCIMAGING 08:55 | PROVIDERS: ATTEND Orthopaedic Surgery Hand Surgery | DX: M19.011 Primary osteoarthritis, right shoulder (principal) ==

== ENCOUNTER → 2018-08-06 | Outpatient (CLI) | payer BC ==
[~2018-08-06] MED LIST changes: -GADOBUTROL 10 ML VIAL IVP ONE; +IOPAMIDOL (ISOVUE-300) 100 ML BTL ONE
== END | disposition home or self-care (01) ==
LOC: FIMAGING 13:26
PROVIDERS: ATTEND Physician Assistant
DX: R63.4 Abnormal weight loss (principal)
CPT/HCPCS: Q9967

== ENCOUNTER → 2018-08-07 | Outpatient (CLI) | payer BC | LOC: FIMAGING 19:47 | PROVIDERS: ATTEND Orthopaedic Surgery Hand Surgery | DX: M19.011 Primary osteoarthritis, right shoulder (principal); M75.81 Other shoulder lesions, right shoulder; M66.811 Spontaneous rupture of other tendons, right shoulder ==

== ENCOUNTER 2018-09-18 21:07 | Emergency (ER) | payer BC ==
[2018-09-18 21:23] LABS: PLATELET COUNT 345 10^3/uL (150-400)
--- NOTE | 2018-09-18 21:55 | EDPHY ---
H & P Stated Complaint: SI - Personal History Tetanus Vaccine Date: 2007 - Medical/Surgical History Hx Asthma: No Hx Chronic Respiratory Disease: No Hx Diabetes: No Hx Cardiac Disease: No Hx Renal Disease: No Hx Cirrhosis: No Hx Alcoholism: No Hx HIV/AIDS: No Hx Splenectomy or Spleen Trauma: No Other PMH: psh- back surgeries; Peptic Ulcers; Lehr-rectal adenoma removed X5; C -sections, spinal fusion - Social History Smoking Status: Former smoker Time Seen by Provider: 09/18/18 21:24 HPI/ROS: CHIEF COMPLAINT: Suicidal ideation HISTORY OF PRESENT ILLNESS: 63-year-old female with alcoholism presents with suicidal ideation. Since the holidays, she has been feeling depressed and recently lost 14 lb, which made her more depressed. 40 case ago she had a birthday democrat for her grandson, drank white wine and her family became very upset with her. This incident increased her depression and this evening she felt suicidal. She was found on the floor in her home, intoxicated and with pill bottles around her. Placed on an M1 hold by PD. She denies taking an overdose of medications. Denies aspirin or Tylenol. REVIEW OF SYSTEMS: complete 10 point ROS reviewed and is negative except for the noted elements in the HPI (Treasure oCllier) - Physical Exam Exam: General Appearance: Alert, slurred speech, appears intoxicated Eyes: Pupils equal and round, no conjunctival pallor or injection ENT, Mouth: Mucous membranes moist Neck: Normal inspection Respiratory: Lungs are clear to auscultation Cardiovascular: Regular rate and rhythm Gastrointestinal: Abdomen is soft and nontender Neurological: A&O, nonfocal exam, gait not assessed Skin: Warm and dry Extremities: Normal inspection Psychiatric: Mood and affect normal (Treasure Collier S) Constitutional: Initial Vital Signs Temperature (C) 36.4 C 09/18/18 21:15 Heart Rate 82 09/18/18 21:15 Respiratory Rate 14 09/18/18 21:15 Blood Pressure 118/73 09/18/18 21:15 O2 Sat (%) 93 09/18/18 21:15 O2 Delivery Mode Room Air Allergies/Adverse Reactions: morphine Allergy (Intermediate, Verified 01/25/18 12:05) "Tingling" penicillin V potassium [From Pen-Vee K] Allergy (Intermediate, Verified 12:05) Rash hydromorphone [From Dilaudid] Allergy (Verified 01/25/18 12:05) Itching methocarbamol [From Robaxin] Allergy (Verified 01/25/18 12:05) Home Medications: Medication Instructions Recorded Zoloft 25mg (*) 01/25/18 Gabapentin 09/18/18 LORazepam [Ativan (*)] 1 mg PO 09/18/18 [place] 5-325 Tablet 09/18/18 Omeprazole 20 mg PO 09/18/18 Medical Decision Making ED Course/Re-evaluation: 0641AM: Patient signed over to Dr. Castillo, No acute events over night. Patient pending MH eval (Jayesh Cagle) Other Provider: 10:00 a.m.: Patient seen and evaluated by Dank from [facility]. No longer meets criteria for mental health hold. Patient is aware that she needs to attend an AA meeting as soon as possible, follow up with her sponsor, has been given referral to [facility] as well as encouraged to follow up with primary care physician and therapist as soon as possible ( Joanna Castillo) - Data Points Laboratory Results: Laboratory Results 09/18/18 21:00 09/18/18 21:00 09/18/18 22:55 Urine Opiates Screen NEGATIVE (NEGATIVE) Urine Barbiturates NEGATIVE (NEGATIVE) Ur Phencyclidine Scrn NEGATIVE (NEGATIVE) Ur Amphetamine Screen NEGATIVE (NEGATIVE) U Benzodiazepines Scrn NON-NEGATIVE H (NEGATIVE) Urine Cocaine Screen NEGATIVE (NEGATIVE) U Marijuana (THC) Screen NEGATIVE (NEGATIVE) Departure - Departure Disposition: Home, Routine, Self-Care Clinical Impression: Alcoholism, Suicidal ideation, Severe major depression Condition: Good Instructions: Abuse of Alcohol (ED), Suicide Prevention (ED) Additional Instructions: Please follow up with your sponsor soon as possible. I encourage you to attending AA meeting as soon as possible. Please follow up with your therapist as soon as possible. You have also been given information regarding [facility]. Referrals: Patient,NotPresent [Unknown] - As per Instructions
[2018-09-19] MEDS ORDERED: ACETAMINOPHEN/ASA/CAFFEINE 1 EACH TAB PO PRN (09:49)
[2018-09-19 10:44] VITALS: BP 122/64
--- NOTE | 2018-09-19 11:54 | ASMTTCLDSP ---
TLC Discharge Disposition Disposition: Answers: Discharge If Answers: Yes DISCHARGED: Patient/family given suicide hotline info & SAMHSA brochure? Disposition Notes: Notes: Pt stated commitment or ability to keep self safe, denied thoughts of self harm or harm to others. Pt expressed a desire to f/u with her psychiatrist, Shaji Farnsworth MD, agreed to counseling referral to [facility] at [place], agreed to call her A.A. sponsor today and recommended she attend an [employer] meeting today. Pt was given local hotline information and SAMHSA brochure After an Attempt and encouraged to follow up with as noted above. Discharge Concerns/Recommendations: Notes: In consultation with [facility] ED physician, Joanna Castillo MD, Dr. Castillo concurred that pt does not appear to meet 27-65 criteria requiring psychiatric hospitalization as pt does not appear to be an imminent risk of harm to self/others/gravely disabled due to a mental illness condition. Dr. Castillo provided verbal order read back vacating M1 hold at 1000 hrs. Was patient given the Answers: Not applicable Inpatient Behavioral Health Prohibited Belongings List while in the ED? Psychiatrist vacating M1 Joanna Castillo MD Hold: Date and time M1 hold 09/19/2018 10:00 AM vacated (time format is hh:mm): Type of Hold: Answers: M1/72-hour Hold Hold initiated by: Answers: Police Date Signed: 09/19/2018 11:53 AM Electronically Signed By:Dank Montejo
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
== END 2018-09-19 10:42 | disposition home or self-care (01) ==
LOC: EDUNIT#
PROC: GZ11ZZZ Psychological Tests, Personality and Behavioral (ICD-10-PCS; principal; 2018-09-18)
DX: R45.851 Suicidal ideations (principal); F32.9 Major depressive disorder, single episode, unspecified; F10.20 Alcohol dependence, uncomplicated
CPT/HCPCS: 80305; G0480